=== PATIENT | male | born 1950 | race Hispanic/Latino ===

== ENCOUNTER 2016-08-28 16:54 | Inpatient (IN) | payer BC, MEDICARE ==
[2016-08-28 16:58] VITALS: BMI 27.9
[2016-08-28] MEDS ORDERED: Pantoprazole 40 MG in Sodium Chloride 0.9% 100 ML IV STA (17:18)
--- NOTE | 2016-08-28 17:34 | ED PDOC ---
Arrival/HPI <Jerry Frankel - Last Filed: 08/28/16 22:18> - General Historian: Patient <Malu Paredes - Last Filed: 08/29/16 00:58> - General Chief Complaint: Abdominal Pain Time Seen by Provider: 08/28/16 17:09 - History of Present Illness Narrative History of Present Illness (Text): 08/28/16 17:30 66yo male with PMHx Cirrhosis, claudication, umbilical hernia, head injury, seizure present with complaint of umbilical abdominal pain that stated yesterday and became worse today. states pain started last night after lifting heavy boxes and then he noticed protrusion of his hernia. +Nausea. He denies vomiting, diarrhea, constipation, melena, hematemesis, urinary symptoms, chest pain, dizziness, diaphoresis, sick contact, any other complaint. He notes surgical history of inguinal repair and espohageal surgery that was done in [place] last year. he also notes that the head injury occured while in [place] and he was seen by a Doctor there. 08/28/16 17:34 08/29/16 00:49 (Malu Paredes) Past Medical History - Provider Review Nursing Documentation Reviewed: Yes - Cardiac Hx Atrial Fibrillation: Yes Hx Cardiac Arrhythmia: Yes - Pulmonary Hx Respiratory Disorders: No - Neurological Hx Neurological Disorder: No - HEENT Hx HEENT Disorder: No - Renal Hx Renal Disorder: No - Endocrine/Metabolic Hx Endocrine Disorders: No - Hematological/Oncological Hx Cirrhosis: Yes Hx Hepatitis C: Yes - Integumentary Hx Dermatological Disorder: No - Musculoskeletal/Rheumatological Hx Falls: No - Gastrointestinal Other/Comment: cirrhosis - Genitourinary/Gynecological Hx Genitourinary Disorders: No - Psychiatric Hx Psychophysiologic Disorder: No Hx Depression: No Hx Emotional Abuse: No Hx Physical Abuse: No Hx Substance Use: No - Surgical History Other/Comment: pt states he had a band put on his esophagus in [place]. Knee surgery - Anesthesia Hx Anesthesia: Yes Hx Anesthesia Reactions: No Hx Malignant Hyperthermia: No - Suicidal Assessment Feels Threatened In Home Enviroment: No <Malu Paredes - Last Filed: 08/29/16 00:58> Family/Social History - Physician Review Nursing Documentation Reviewed: Yes Family/Social History: Unknown Family HX Smoking Status: Former Smoker Hx Alcohol Use: Yes (quit one year ago, goes to ) Hx Substance Use: No <Malu Paredes A - Last Filed: 08/29/16 00:58> Allergies/Home Meds <Jerry Frankel - Last Filed: 08/28/16 22:18> <Malu Paredes A - Last Filed: 08/29/16 00:58> Allergies/Adverse Reactions: Allergies No Known Allergies Allergy (Verified 08/28/16 16:58) Home Medications: Home Meds Medication Instructions Recorded Confirmed Nadolol 40 mg PO DAILY 12/19/11 08/28/16 Omeprazole [PrilOSEC] 40 mg PO DAILY 12/19/11 08/28/16 Digoxin [Lanoxin] 0.25 mg PO DAILY 08/28/16 08/28/16 Spironolactone [Aldactone] 25 mg PO DAILY 08/28/16 08/28/16 Review of Systems - Physician Review All systems were reviewed & negative as marked: Yes - Review of Systems Constitutional: Normal Eyes: Normal ENT: Normal Respiratory: Normal Cardiovascular: Normal Gastrointestinal: Abdominal Pain, Nausea. absent: Stool Changes, Constipation, Diarrhea, Vomiting, Hematochezia, Hematemesis Genitourinary Male: Normal Musculoskeletal: Normal Skin: Normal Neurological: Normal Endocrine: Normal Hemo/Lymphatic: Normal Psychiatric: Normal <Malu Paredes A - Last Filed: 08/29/16 00:58> Physical Exam Vital Signs Reviewed: Yes Temperature: Afebrile Blood Pressure: Normal Pulse: Regular Respiratory Rate: Normal Appearance: Positive for: Well-Appearing, Non-Toxic, Comfortable Pain Distress: None Mental Status: Positive for: Alert and Oriented X 3 - Systems Exam Head: Present: Atraumatic, Normocephalic Pupils: Present: PERRL Extroacular Muscles: Present: EOMI Conjunctiva: Present: Normal Mouth: Present: Moist Mucous Membranes Neck: Present: Normal Range of Motion Respiratory/Chest: Present: Clear to Auscultation, Good Air Exchange. No: Respiratory Distress, Accessory Muscle Use Cardiovascular: Present: Regular Rate and Rhythm, Normal S1, S2. No: Murmurs Abdomen: Present: Tenderness (Umbilical area), Normal Bowel Sounds, Guarding, Hernias (Nonreducible tender umbilical hernia). No: Distention, Peritoneal Signs, Rebound, McBurney's Point Tender, Rovsing's Sign Present Back: Present: Normal Inspection Upper Extremity: Present: Normal Inspection. No: Cyanosis, Edema Lower Extremity: Present: Normal Inspection. No: Edema Neurological: Present: GCS=15, CN II-XII Intact, Speech Normal Skin: Present: Warm, Dry, Normal Color. No: Rashes Psychiatric: Present: Alert, Oriented x 3, Normal Insight, Normal Concentration <Malu Paredes A - Last Filed: 08/29/16 00:58> Vital Signs Temp Pulse Resp BP Pulse Ox 08/28/16 23:42 77 17 147/86 99 08/28/16 23:12 96 H 16 165/93 H 98 08/28/16 22:54 97.9 F 69 16 134/71 08/28/16 22:39 97.8 F 65 16 141/90 08/28/16 22:19 70 16 141/90 100 08/28/16 21:30 97.4 F L 69 16 133/77 98 08/28/16 19:14 72 14 119/52 L 100 08/28/16 17:43 98.1 F 66 14 132/61 99 08/28/16 17:04 98.2 F 95 H 14 133/68 100 Medical Decision Making <Jerry Frankel - Last Filed: 08/28/16 22:18> <Malu Paredes A - Last Filed: 08/29/16 00:58> ED Course and Treatment: 08/28/16 22:18 Patient seen and examined with PA. I examined patient and reviewed hx with patient and . Patient presents with abdominal pain, on exam he is noted to have incarcerated umbilical hernia that is not reducible. Patient reportedly had seizure while in ED and being examined, when I evaluated him he is awake, alert, with no focal motor or sensory deficits. Abdomen is distended with umbilical hernia that cannot be reduced. Surgery consulted, Dr. Edwards requested, based on exam. CT with contrast ordered. Patient reports a fall and head injury in [place] last year where he had "bleeding in the brain" and had "seizure since then". He reports he is "an alcoholic" and drinks "frequently". Last drink this afternoon. On exam he is not tremulous or tachycardic. Rectal exam performed by me reveals BROWN but hemoccult positive stool. With serial exams he is not hypotensive or tachycardic. EKG reveals atrial fibrillation with controlled ventricular rate. Patient states Dr. Gavin, his GI did not want him to take blood thinners because "of my liver disease". He reports needing blood transfusion "6 years ago". Based on anemia and hemoccult positive stool, ICU evaluation requested, patient evaluated by Dr. Archibald, currently approved for telemetry admission. Surgery consulted, Dr. Edwrads aware, case discussed with Dr. Yeni Khan accepts admission. Patient had been prescribed Librium by PMD in past, currently not tremulous, although he requires serial neuro exams. CT head and abdomen pending at this time. Consent obtained for blood transfusion, risks/benefits and indications for transfusion reviewed with patient and , consent obtained. Patient denies vomiting or hematemesis. Denies chest pain or shortness of breath. Case reviewed with Dr. Gavin, protonix drip initiated, blood transfusion ordered. (Jerry Frankel) 08/28/16 17:52 66yo male in ED for umbilical hernia pain. while in ED pt was noted to have tonic clonic seizure that lasted for about a minute and then stopped. On evaluation he was neurological intact. AAO x3 and not postictal. He was noted to be retching. He admits to previous seizure episode s/p his head injury. He is currently not on any seizure medication. Zofran, Protonix was ordered. Lab pending Abdominal and Head CT ordered. will re evaluate pt. 08/28/16 19:43 Pt' h/H was noted to be 7.1. this is very low compare to pt's previous lab. Pt denies melena, hematemesis, hematochezia. Guaic will be done to r/o GI bleed. Type and screen will be ordered 08/29/16 00:50 Dr. Frankel guromeroc pt and it had melena. He obtained consent for transfusion from pt and pt was transfused two units. Pt however remain hemodynamically stable in ED. Head CT - Negative for any acute finding Abdominal CT IMPRESSION: 1. Local hernia containing bowel with resultant obstruction. 2. Cirrhosis with portal hypertension. 3. Mild colitis versus underdistention. Clinical correlation is needed. 4. Incidental/non-acute findings are described above. Dr. Frankel DC with Dr. Ochoa and Dr. Gavin. Dr. lieberman aceepted pt for admission. The Intensivit Dr. archibald saw pt and pt was admitted to [facility]. Dr. Frankel DC result and plan with the pt and he agreed. vice president lending placed NG tube in ED secondary to the obstruction. (Reggie,Malu A) - Lab Interpretations Lab Results: 08/28/16 15:35 08/28/16 15:35 Lab Results 08/28/16 20:05: Blood Type O POSITIVE, Antibody Screen Negative, Crossmatch See Detail, BBK History Checked No verified bt 08/28/16 15:35: Alcohol, Quantitative < 10 08/28/16 15:35: Digoxin 0.7 L 08/28/16 15:35: pO2 24 L, VBG pH 7.42, VBG pCO2 46.0, VBG HCO3 29.8 H, VBG Total CO2 31.2 H, VBG O2 Sat (Calc) 38.2 L, VBG Base Excess 4.8 H, VBG Potassium 4.2, Sodium 140.0, Chloride 108.0 H, Glucose 107, Lactate 2.0, FiO2 21.0, Venous Blood Potassium 4.2 08/28/16 15:35: Sodium 139, Chloride 105, Potassium 4.1, Carbon Dioxide 26, Anion Gap 12, BUN 11, Creatinine 0.8, Est GFR ( Amer) > 60, Est GFR (Non- Af Amer) > 60, Random Glucose 101, Calcium 9.0, Total Bilirubin 1.9 H, AST 78 H , ALT 49, Alkaline Phosphatase 92, Lactate Dehydrogenase 585, Total Creatine Kinase 127, Troponin I < 0.01, Total Protein 8.6 H, Albumin 3.5, Globulin 5.1, Albumin/Globulin Ratio 0.7 L, Amylase 119, Lipase 55 08/28/16 15:35: PT 13.6 H, INR 1.26 H, APTT 27.1 08/28/16 15:35: WBC 4.2 L, RBC 4.01, Hgb 7.1 L D, Hct 26.1 L, MCV 65.1 L, MCH 17.7 L, MCHC 27.2 L, RDW 21.9 H, Plt Count 145, Gran % 69.1 H, Lymph % (Auto) 12.5 L, [place] % (Auto) 10.8 H, Eos % (Auto) 5.0, Baso % (Auto) 2.6, Gran # 2.87, Lymph # 0.5 L, Leon # 0.5, Eos # 0.2, Baso # 0.11 - RAD Interpretation Radiology Orders: 08/28/16 17:18 ABD PELVIS PO & IV CONTRAST [CT] Stat 08/28/16 17:34 HEAD W/O CONTRAST [CT] Stat - Medication Orders Current Medication Orders: Hydromorphone HCl (Dilaudid) 0.5 mg IVP Q4H PRN PRN Reason: Pain, moderate (4-7) Pantoprazole Sodium (Protonix 40mg Ivpb) 40 mg in 100 mls @ 20 mls/hr IVPB .Q5H ALYSE Last Admin: 08/28/16 21:07 Dose: 20 mls/hr Piperacillin Sod/Tazobactam Sod (Zosyn 4.5 Gm In Ns 100ml) 4.5 gm in 100 mls @ 200 mls/hr IVPB Q6 ALYSE PRN Reason: Protocol Stop: 08/29/16 12:29 Sodium Chloride (Sodium Chloride 0.9%) 1,000 mls @ 125 mls/hr IV .Q8H ALYSE Morphine Sulfate (Morphine) 4 mg IVP STAT STA Stop: 08/29/16 00:24 Ondansetron HCl (Zofran Inj) 4 mg IVP Q6H PRN PRN Reason: Nausea/Vomiting Discontinued Medications Pantoprazole Sodium 40 mg/ (Sodium Chloride) 100 mls @ 400 mls/hr IV STAT STA Stop: 08/28/16 17:32 Last Admin: 08/28/16 18:19 Dose: 400 mls/hr Iohexol (Omnipaque 240 (50 Ml)) Confirm Administered Dose 50 ml .ROUTE .STK-MED ONE Stop: 08/28/16 17:38 Lorazepam (Ativan) 2 mg IVP ONCE ONE PRN Reason: Protocol Stop: 08/28/16 17:27 Last Admin: 08/28/16 17:32 Dose: 2 mg Morphine Sulfate (Morphine) 4 mg IVP STAT STA Stop: 08/28/16 18:37 Last Admin: 08/28/16 18:49 Dose: 4 mg Morphine Sulfate (Morphine) 2 mg IVP STAT STA Stop: 08/28/16 19:52 Last Admin: 08/28/16 20:00 Dose: 2 mg Ondansetron HCl (Zofran Inj) 4 mg IVP STAT STA Stop: 08/28/16 17:19 Last Admin: 08/28/16 17:44 Dose: 4 mg Ondansetron HCl (Zofran Inj) 4 mg IVP STAT STA Stop: 08/28/16 23:21 Last Admin: 08/28/16 23:52 Dose: 4 mg - PA / MISSION ANALYST / Resident Statement / has reviewed & agrees with the documentation as recorded. / has examined the patient and agrees with the treatment plan. <Jerry Frankel - Last Filed: 08/28/16 22:18> Disposition/Present on Arrival <Jerry Frankel - Last Filed: 08/28/16 22:18> - Present on Arrival Any Indicators Present on Arrival: No History of DVT/PE: No History of Uncontrolled Diabetes: No Urinary Catheter: No History of Decub. Ulcer: No History Surgical Site Infection Following: None - Disposition Have Diagnosis and Disposition been Completed?: Yes Disposition Time: 20:00 <Malu Paredes - Last Filed: 08/29/16 00:58> - Disposition Diagnosis: Seizure, GI bleed, Hernia, Intestinal obstruction Disposition: HOSPITALIZED Patient Problems: Current Active Problems Problem Status Onset Seizure Acute Condition: GUARDED
[2016-08-28] MEDS ORDERED: Iohexol 240 (50 ml) ONE (17:37)
[2016-08-28 17:49] LABS: VENOUS BLOOD GAS BASE EXCESS 4.8 mmol/L (0.0-2.0); VENOUS BLOOD GAS PO2 24 mm/Hg (30-55); VENOUS BLOOD PH 7.42 (7.32-7.43)
[2016-08-28 17:57] LABS: ALB/GLOB RATIO 0.7 (1.1-1.8); ALBUMIN 3.5 g/dL (3.0-4.8); ALT/SGPT 49 U/L (7-56); AMYLASE 119 U/L (35-125); AST/SGOT 78 U/L (15-59); BLOOD UREA NITROGEN 11 mg/dL (7-21); GFR AFRICAN-AMERICAN > 60; GFR NON-AFRICAN AMERICAN > 60; LIPASE 55 U/L (23-300)
[2016-08-28 18:00] LABS: INR 1.26 (0.93-1.08); PARTIAL THROMBOPLASTIN TIME 27.1 Seconds (23.7-30.8); PROTHROMBIN TIME 13.6 Seconds (9.9-11.8)
[2016-08-28 18:08] LABS: TROPONIN I < 0.01 ng/mL
[2016-08-28] MEDS ORDERED: Morphine 4 mg/ml ISec IVP STA (18:36)
[2016-08-28 18:43] LABS: BASO # 0.11 K/mm3 (0.0-2.0); BASO % 2.6 % (0.0-3.0); EOS # 0.2 (0.0-0.7); GRAN # 2.87 (1.4-6.5); GRAN % 69.1 % (50.0-68.0); LYMPH # 0.5 (1.2-3.4); LYMPH % 12.5 % (22.0-35.0); MEAN CELL VOLUME 65.1 fL (80.0-105.0); MEAN CORPUSCULAR HEMOGLOBIN 17.7 pg (25.0-35.0); MEAN CORPUSCULAR HGB CONC 27.2 g/dl (31.0-37.0); MONO # 0.5 (0.1-0.6); MONO % 10.8 % (1.0-6.0); PLATELET COUNT 145 10^3/uL (120.0-450.0); RBC 4.01 10^6/uL (3.5-6.1); RED CELL DISTRIBUTION WIDTH 21.9 % (11.5-14.5); WHITE BLOOD COUNT 4.2 10^3/ul (4.5-11.0)
[2016-08-28 18:56] LABS: HEMOGLOBIN 7.1 gm/dL (14.0-18.0)
[2016-08-28] MEDS ORDERED: Morphine 2 mg/ml ISec IVP STA (19:51)
--- NOTE | 2016-08-28 21:05 | CP.PCM.CON ---
History of Present Illness - History of Present Illness History of Present Illness: General Surgery Consult note for Dr. Edwards Consulted for: incarcerated hernia Patient is a 66 year old male with PMH including hepatitis C and cirrhosis with ascites, afib, and seizures with PSH of inguinal hernia repair and what the patient describes as "esophageal band" procedure in [place] one year ago for intractable nausea and vomiting. Patient came to the ER for abdominal pain and non-reducible umbilical hernia. Patient states that he first noticed his umbilical hernia 6 months ago shortly after onset of abdominal ascites but today he was walking up the stairs carrying a heavy suitcase when he started feeling more pain in his umbilicus and found he couldn't reduce his hernia. The pain got gradually worse until he came to the ER. When the ER staff palpated his hernia patient had an episode of vomiting followed by a seizure. Patient denies any nausea, diarrhea, constipation, fevers, chills, hematochezia, melena , dysuria, hematuria, chest pain, back pain, or any other symptoms. During my interview patient is sitting comfortably, stating his pain is much improved by the morphine, and denies any further nausea and vomiting. PMH: Hepatitis C, cirrhosis with ascites, afib, seizures, head trauma PSH: inguinal hernia repair, knee surgery, ?esophageal surgery ALL: NKDA Social: drinks 2-3 beers a day, used to drink more heavily. Past smoker 1.5PPD for 25 years, quit 10 years ago. Admits recreational drug use decades ago Review of Systems - Review of Systems All systems: reviewed and no additional remarkable complaints except (as per HPI ) - Constitutional Constitutional: As Per HPI - Cardiovascular Cardiovascular: absent: Chest Pain, Chest Pain at Rest, Dyspnea - Respiratory Respiratory: absent: Cough, Dyspnea, Wheezing - Gastrointestinal Gastrointestinal: As Per HPI - Genitourinary Genitourinary: As Per HPI - Musculoskeletal Musculoskeletal: Arthralgias (chronic left shoulder pain). absent: Back Pain, Numbness, Tingling - Integumentary Integumentary: absent: Change in Pigmentation, Wounds - Neurological Neurological: absent: Abnormal Gait, Numbness, Tingling Past Patient History - Past Medical History & Family History Past Medical History?: Yes - Past Social History Smoking Status: Former Smoker Alcohol: > 2 Drinks/Day Drugs: Other (Used when younger) Home Situation {Lives}: With Family - CARDIAC Hx Atrial Fibrillation: Yes Hx Cardia Arrhythmia: Yes - PULMONARY Hx Respiratory Disorders: No - NEUROLOGICAL Hx Neurological Disorder: No - HEENT Hx HEENT Problems: No - RENAL Hx Chronic Kidney Disease: No - ENDOCRINE/METABOLIC Hx Endocrine Disorders: No - HEMATOLOGICAL/ONCOLOGICAL Hx Cirrhosis: Yes Hx Hepatitis C: Yes - INTEGUMENTARY Hx Dermatological Problems: No - MUSCULOSKELETAL/RHEUMATOLOGICAL Hx Falls: No - GASTROINTESTINAL Other/Comment: cirrhosis - GENITOURINARY/GYNECOLOGICAL Hx Genitourinary Disorders: No - PSYCHIATRIC Hx Psychophysiologic Disorder: No Hx Depression: No Hx Emotional Abuse: No Hx Physical Abuse: No Hx Substance Use: No - SURGICAL HISTORY Hx Herniorrhaphy: Yes (inguinal) Hx Orthopedic Surgery: Yes (knee) Other/Comment: pt states he had a band put on his esophagus in [place] - ANESTHESIA Hx Anesthesia: Yes Hx Anesthesia Reactions: No Hx Malignant Hyperthermia: No Meds Allergies/Adverse Reactions: Allergies Allergy/AdvReac Type Severity Reaction Status Date / Time No Known Allergies Allergy Verified 08/28/16 16:58 - Medications Medications: Current Medications Pantoprazole Sodium (Protonix 40mg Ivpb) 40 mg in 100 mls @ 20 mls/hr IVPB .Q5H ALYSE Physical Exam - Constitutional Appears: Well, Non-toxic, No Acute Distress - Head Exam Head Exam: ATRAUMATIC, NORMOCEPHALIC - Eye Exam Eye Exam: Normal appearance. absent: Conjunctival injection, Scleral icterus - ENT Exam ENT Exam: Mucous Membranes Moist, Normal Oropharynx - Respiratory Exam Respiratory Exam: NORMAL BREATHING PATTERN. absent: Accessory Muscle Use, Respiratory Distress - Cardiovascular Exam Cardiovascular Exam: RRR - GI/Abdominal Exam GI & Abdominal Exam: Distended, Soft, Tenderness (megha-umbilical, LLQ). absent : Guarding, Rigid Additional comments: umbilical hernia, tense, non-reducible, non-erythematous, mildly tender - Extremities Exam Extremities exam: Positive for: pedal pulses present. Negative for: calf tenderness, pedal edema - Neurological Exam Neurological exam: Alert, Oriented x3 - Psychiatric Exam Psychiatric exam: Normal Affect, Normal Mood - Skin Skin Exam: Dry, Intact, Normal Color, Warm Results - Vital Signs Recent Vital Signs: Last Vital Signs Temp 98.1 F 08/28/16 17:43 Pulse 72 08/28/16 19:14 Resp 14 08/28/16 19:14 BP 119/52 L 08/28/16 19:14 Pulse Ox 100 08/28/16 19:14 - Labs Result Diagrams: 08/28/16 15:35 08/28/16 15:35 Labs: Laboratory Results - last 24 hr 08/28/16 08/28/16 08/28/16 15:35 15:35 15:35 WBC 4.2 L RBC 4.01 Hgb 7.1 L D Hct 26.1 L MCV 65.1 L MCH 17.7 L MCHC 27.2 L RDW 21.9 H Plt Count 145 Gran % 69.1 H Lymph % (Auto) 12.5 L [place] % (Auto) 10.8 H Eos % (Auto) 5.0 Baso % (Auto) 2.6 Gran # 2.87 Lymph # 0.5 L [place] # 0.5 Eos # 0.2 Baso # 0.11 PT 13.6 H INR 1.26 H APTT 27.1 pO2 VBG pH VBG pCO2 VBG HCO3 VBG Total CO2 VBG O2 Sat (Calc) VBG Base Excess VBG Potassium Sodium 139 Chloride 105 Glucose Lactate FiO2 Potassium 4.1 Carbon Dioxide 26 Anion Gap 12 BUN 11 Creatinine 0.8 Est GFR ( Amer) > 60 Est GFR (Non-Af Amer) > 60 Random Glucose 101 Calcium 9.0 Total Bilirubin 1.9 H AST 78 H ALT 49 Alkaline Phosphatase 92 Lactate Dehydrogenase 585 Total Creatine Kinase 127 Troponin I < 0.01 Total Protein 8.6 H Albumin 3.5 Globulin 5.1 Albumin/Globulin Ratio 0.7 L Amylase 119 Lipase 55 Venous Blood Potassium Digoxin Alcohol, Quantitative Crossmatch BBK History Checked 08/28/16 08/28/16 08/28/16 15:35 15:35 15:35 WBC RBC Hgb Hct MCV MCH MCHC RDW Plt Count Gran % Lymph % (Auto) [place] % (Auto) Eos % (Auto) Baso % (Auto) Gran # Lymph # [place] # Eos # Baso # PT INR APTT pO2 24 L VBG pH 7.42 VBG pCO2 46.0 VBG HCO3 29.8 H VBG Total CO2 31.2 H VBG O2 Sat (Calc) 38.2 L VBG Base Excess 4.8 H VBG Potassium 4.2 Sodium 140.0 Chloride 108.0 H Glucose 107 Lactate 2.0 FiO2 21.0 Potassium Carbon Dioxide Anion Gap BUN Creatinine Est GFR ( Amer) Est GFR (Non-Af Amer) Random Glucose Calcium Total Bilirubin AST ALT Alkaline Phosphatase Lactate Dehydrogenase Total Creatine Kinase Troponin I Total Protein Albumin Globulin Albumin/Globulin Ratio Amylase Lipase Venous Blood Potassium 4.2 Digoxin 0.7 L Alcohol, Quantitative < 10 Crossmatch BBK History Checked 08/28/16 20:05 WBC RBC Hgb Hct MCV MCH MCHC RDW Plt Count Gran % Lymph % (Auto) [place] % (Auto) Eos % (Auto) Baso % (Auto) Gran # Lymph # [place] # Eos # Baso # PT INR APTT pO2 VBG pH VBG pCO2 VBG HCO3 VBG Total CO2 VBG O2 Sat (Calc) VBG Base Excess VBG Potassium Sodium Chloride Glucose Lactate FiO2 Potassium Carbon Dioxide Anion Gap BUN Creatinine Est GFR ( Amer) Est GFR (Non-Af Amer) Random Glucose Calcium Total Bilirubin AST ALT Alkaline Phosphatase Lactate Dehydrogenase Total Creatine Kinase Troponin I Total Protein Albumin Globulin Albumin/Globulin Ratio Amylase Lipase Venous Blood Potassium Digoxin Alcohol, Quantitative Crossmatch See Detail BBK History Checked No verified bt Assessment & Plan - Assessment and Plan (Free Text) Assessment: 66M with PMH including cirrhosis with ascites, hepatitis C, seizures with PSH of inguinal hernia repair and unknown esophageal surgery with an incarcerated umbilical hernia for 1 day. afebrile, VSS incarcerated, tender umbilical hernia, abdominal exam otherwise benign no leukocytosis, severe anemia of 7.1hgb, lactate 2.0 Plan: -abdomen and pelvis CT scan with PO contrast--planning surgical intervention pending results -repeat H/H -antibiotics -IVF -serial abdominal exams -consider administering blood products if repeat H/H still low Discussed with Dr. Jerry Grossman PGY1
[2016-08-28] MEDS: Pantoprazole 40mg/100ml IVPB 40 MG/100 ML BAG IVPB SCH (21:07)
--- NOTE | 2016-08-28 22:43 | CT ---
EXAM: CT Head Without Intravenous Contrast CLINICAL HISTORY: 66 years old, male; Pain; Headache; Headache not specified; Additional info: Seizure TECHNIQUE: Axial computed tomography images of the head/brain without intravenous contrast. This CT exam was performed using one or more of the following dose reduction techniques: automated exposure control, adjustment of the mA and/or kV according to patient size, and/or use of iterative reconstruction technique. COMPARISON: No relevant prior studies available. FINDINGS: Brain: Sred-wj-mmaudyxn atrophy. No intracranial hemorrhage. No mass. No definite edema. Ventricles: No hydrocephalus. Bones/joints: No acute fracture. Soft tissues: Unremarkable. Sinuses: Moderate mucosal thickening of RIGHT sphenoid sinus. Mild focal thickening of RIGHT ethmoid sinus. Mastoid air cells: No mastoid effusion. Orbits: Unremarkable as visualized. IMPRESSION: 1. No definite acute intracranial abnormality. 2. Sinus disease. 3. Incidental/non-acute findings are described above.
--- NOTE | 2016-08-28 22:50 | CT ---
EXAM: CT Abdomen and Pelvis With Intravenous Contrast CLINICAL HISTORY: 66 years old, male; Pain; Abdominal pain; Acute TECHNIQUE: Axial computed tomography images of the abdomen and pelvis with intravenous contrast. This CT exam was performed using one or more of the following dose reduction techniques: automated exposure control, adjustment of the mA and/or kV according to patient size, and/or use of iterative reconstruction technique. Coronal and sagittal reformatted images were created and reviewed. CONTRAST: 100 mL of omni 350 administered intravenously. COMPARISON: No relevant prior studies available. FINDINGS: Lower thorax: Mild cardiomegaly. Mild atelectasis/scarring. ABDOMEN: Liver: Lobulated contour. Gallbladder and bile ducts: Gallstone. No ductal dilation. Pancreas: No ductal dilation. No mass. Spleen: Mild splenomegaly. Adrenals: No mass. Kidneys and ureters: Probable few renal cysts. No hydronephrosis. Stomach and bowel: Small umbilical hernia containing loop of small bowel. Moderately dilated loops of small bowel proximal to hernia. Collapsed small bowel distal to hernia. Segmental areas of mild mural thickening vs underdistention of large bowel. Appendix: No findings to suggest acute appendicitis. PELVIS: Bladder: Unremarkable. Reproductive: Unremarkable as visualized. ABDOMEN and PELVIS: Intraperitoneal space: Moderate to large free fluid within abdomen and pelvis. Bones/joints: Scoliosis and degenerative changes of spine. No acute fracture. Soft tissues: Minimal gynecomastia. Vasculature: Mild atherosclerotic disease. No aneurysm. Few varices within upper abdomen. Lymph nodes: No pathologically enlarged lymph nodes. IMPRESSION: 1. Local hernia containing bowel with resultant obstruction. 2. Cirrhosis with portal hypertension. 3. Mild colitis versus underdistention. Clinical correlation is needed. 4. Incidental/non-acute findings are described above.
--- NOTE | 2016-08-28 23:39 | CP.PCM.CON ---
Past Patient History - Past Medical History & Family History Past Medical History?: Yes - Past Social History Smoking Status: Former Smoker Alcohol: > 2 Drinks/Day Drugs: Other (Used when younger) Home Situation {Lives}: With Family - CARDIAC Hx Atrial Fibrillation: Yes Hx Cardia Arrhythmia: Yes - PULMONARY Hx Respiratory Disorders: No - NEUROLOGICAL Hx Neurological Disorder: No - HEENT Hx HEENT Problems: No - RENAL Hx Chronic Kidney Disease: No - ENDOCRINE/METABOLIC Hx Endocrine Disorders: No - HEMATOLOGICAL/ONCOLOGICAL Hx Cirrhosis: Yes Hx Hepatitis C: Yes - INTEGUMENTARY Hx Dermatological Problems: No - MUSCULOSKELETAL/RHEUMATOLOGICAL Hx Falls: No - GASTROINTESTINAL Other/Comment: cirrhosis - GENITOURINARY/GYNECOLOGICAL Hx Genitourinary Disorders: No - PSYCHIATRIC Hx Psychophysiologic Disorder: No Hx Depression: No Hx Emotional Abuse: No Hx Physical Abuse: No Hx Substance Use: No - SURGICAL HISTORY Hx Herniorrhaphy: Yes (inguinal) Hx Orthopedic Surgery: Yes (knee) Other/Comment: pt states he had a band put on his esophagus in [place] - ANESTHESIA Hx Anesthesia: Yes Hx Anesthesia Reactions: No Hx Malignant Hyperthermia: No Meds Allergies/Adverse Reactions: Allergies Allergy/AdvReac Type Severity Reaction Status Date / Time No Known Allergies Allergy Verified 08/28/16 16:58 - Medications Medications: Current Medications Pantoprazole Sodium (Protonix 40mg Ivpb) 40 mg in 100 mls @ 20 mls/hr IVPB .Q5H ALYSE Last Admin: 08/28/16 21:07 Dose: 20 mls/hr Results - Vital Signs Recent Vital Signs: Last Vital Signs Temp 97.9 F 08/28/16 22:54 Pulse 69 08/28/16 22:54 Resp 16 08/28/16 22:54 BP 134/71 08/28/16 22:54 Pulse Ox 98 08/28/16 21:30 - Labs Result Diagrams: 08/28/16 15:35 08/28/16 15:35 Labs: Laboratory Results - last 24 hr 08/28/16 20:32 Blood Type Confirm O POSITIVE
[2016-08-29] MEDS ORDERED: Morphine 4 mg/ml ISec IVP STA (00:23)
[2016-08-29] MEDS ORDERED: Sodium Chloride 0.9% 1,000 ML IV SCH (00:30)
[2016-08-29 02:40] LABS: PH,URINE 6.5 (4.7-8.0); URINE BILIRUBIN SMALL (NEGATIVE); URINE BLOOD NEGATIVE (NEGATIVE); URINE GLUCOSE (UA) NEGATIVE (NEGATIVE); URINE LEUKOCYTE ESTERASE NEGATIVE Leu/uL (NEGATIVE); URINE NITRATE NEGATIVE (NEGATIVE); URINE PROTEIN TRACE mg/dL (<30 mg/dL)
[2016-08-29 02:45] LABS: URINE APPEARANCE CLEAR (CLEAR); URINE COLOR YELLOW (YELLOW)
[2016-08-29] MEDS: Pantoprazole 40mg/100ml IVPB 40 MG/100 ML BAG IVPB SCH ×2 (02:46→05:54)
[2016-08-29 02:56] LABS: URINE BACTERIA OCC (NEG); URINE EPITHELIAL CELLS 0 - 2 /hpf (0-5); URINE RBC 0 - 2 /hpf (0-2)
[2016-08-29] MEDS: HYDROmorphone 0.5 mg/0.5 ml ISec IVP PRN ×2 (04:10→21:26)
--- NOTE | 2016-08-29 04:24 | CP.PCM.PN ---
Subjective - Date & Time of Evaluation Date of Evaluation: 08/29/16 Time of Evaluation: 04:21 - Subjective Subjective: S: As per nurse patient had 2.7 second pause on monitor. He was seen at bedside. He is asymptomatic. Denies chest pain, sob, nasuea, sweating. Medical record was reviewed. O: Last Vital Signs 3 Temp 98.1 F 08/29/16 04:23 Pulse 80 08/29/16 04:23 Resp 20 08/29/16 04:23 BP 144/83 08/29/16 04:23 Pulse Ox 99 08/28/16 23:42 Awake, alert. NGT in place. LUNGS: Normal breathing pattern. A:Sinus pause on monitor. P:Add Mg, Phos, Trop in AM labs. Objective - Vital Signs/Intake and Output Vital Signs (last 24 hours): Temp Pulse Resp BP Pulse Ox 97.5 F L 82 20 148/81 99 08/29/16 03:53 08/29/16 03:53 08/29/16 03:53 08/29/16 03:53 08/28/16 23:42 Intake and Output: 08/28/16 08/29/16 18:59 06:59 Intake Total 350 Balance 350 - Medications Medications: Current Medications Hydromorphone HCl (Dilaudid) 0.5 mg IVP Q4H PRN PRN Reason: Pain, moderate (4-7) Last Admin: 08/29/16 04:10 Dose: 0.5 mg Pantoprazole Sodium (Protonix 40mg Ivpb) 40 mg in 100 mls @ 20 mls/hr IVPB .Q5H ALYSE Last Admin: 08/29/16 02:46 Dose: 20 mls/hr Piperacillin Sod/Tazobactam Sod (Zosyn 4.5 Gm In Ns 100ml) 4.5 gm in 100 mls @ 200 mls/hr IVPB Q6 ALYSE PRN Reason: Protocol Stop: 08/29/16 12:29 Sodium Chloride (Sodium Chloride 0.9%) 1,000 mls @ 125 mls/hr IV .Q8H ALYSE Ondansetron HCl (Zofran Inj) 4 mg IVP Q6H PRN PRN Reason: Nausea/Vomiting Last Admin: 08/29/16 04:09 Dose: 4 mg - Labs Labs: PT 13.6 Seconds (9.9-11.8) H 08/28/16 15:35 INR 1.26 (0.93-1.08) H 08/28/16 15:35 APTT 27.1 Seconds (23.7-30.8) 08/28/16 15:35
[2016-08-29] MEDS: Piperacill/Tazo 4.5gm in NS 4.5 GM/100 ML BAG IVPB SCH ×2 (05:54→14:25)
[2016-08-29 06:19] LABS: HEMOGLOBIN 9.6 gm/dL (14.0-18.0); MEAN CELL VOLUME 68.8 fL (80.0-105.0); MEAN CORPUSCULAR HEMOGLOBIN 19.4 pg (25.0-35.0); MEAN CORPUSCULAR HGB CONC 28.2 g/dl (31.0-37.0); PLATELET COUNT 162 10^3/uL (120.0-450.0); RBC 4.96 10^6/uL (3.5-6.1); RED CELL DISTRIBUTION WIDTH 23.6 % (11.5-14.5); WHITE BLOOD COUNT 7.6 10^3/ul (4.5-11.0)
[2016-08-29 06:34] LABS: ALB/GLOB RATIO 0.7 (1.1-1.8); ALBUMIN 3.5 g/dL (3.0-4.8); ALT/SGPT 53 U/L (7-56); AST/SGOT 69 U/L (15-59); BLOOD UREA NITROGEN 13 mg/dL (7-21); CALCIUM 8.9 mg/dL (8.4-10.5); GFR AFRICAN-AMERICAN > 60; GFR NON-AFRICAN AMERICAN > 60; MAGNESIUM 1.6 mg/dL (1.7-2.2)
[2016-08-29 06:47] LABS: BAND 6 % (0-2); BASOPHIL 1 % (0.0-1.0); EOSINOPHIL 1 % (0.0-3.0); HYPOCHROMIA 2+; LYMPHOCYTE 4 % (22.0-35.0); MONOCYTE 2 % (1.0-6.0); NEUTROPHIL 86 % (50.0-70.0); PLATELET ESTIMATE NORMAL (NORMAL); TARGET CELLS 1+
[2016-08-29 06:54] LABS: TROPONIN I < 0.01 ng/mL
[2016-08-29] MEDS ORDERED: Magnesium Sulfate 1 gm in D5W 1 GM/100 ML BAG IVPB ONE (06:59)
--- NOTE | 2016-08-29 08:52 | RAD ---
HISTORY: NGT placement COMPARISON: No prior. FINDINGS: LUNGS: No active pulmonary disease. PLEURA: No significant pleural effusion identified, no pneumothorax apparent. CARDIOVASCULAR: Normal. OSSEOUS STRUCTURES: No significant abnormalities. VISUALIZED UPPER ABDOMEN: Normal. OTHER FINDINGS: None. IMPRESSION: The nasogastric tube is in satisfactory position
[2016-08-29 09:27] LABS: INR 1.28 (0.93-1.08); PARTIAL THROMBOPLASTIN TIME 27.3 Seconds (23.7-30.8); PROTHROMBIN TIME 13.8 Seconds (9.9-11.8)
--- NOTE | 2016-08-29 10:24 | CON ---
DATE: 08/29/2016 INDICATIONS: Atrial fibrillation with 7 second pause. HISTORY OF PRESENT ILLNESS: This is a 66-year-old man admitted yesterday with complex medical problems. He is in atrial fibrillation. While on telemetry a 2.9 and a 7.5 second RR intervals were noted. He reports some dizziness, although he is a vague historian. There is no chest pain, shortness of breath, orthopnea, PND, palpitation, edema, fever, chills, cough, sputum production, hemoptysis. He does report a fall with head injury in [place] last year. He does report some episodes of dizziness. There is abdominal pain and an incarcerated umbilical hernia. PAST MEDICAL HISTORY: Notable for cirrhosis, intermittent claudication, fall with head injury while in [place] last year, head trauma, seizure disorder, anemia, hepatitis C, history of esophageal surgery, daily alcohol use, former smoker, but no history of rheumatic fever, myocardial infarction, angina, congestive heart failure, stroke, TIA, diabetes, or gout. MEDICATIONS AT THIS TIME: Include Ativan, Dilaudid, magnesium sulfate, morphine , pantoprazole, Zofran, Zosyn. ALLERGIES: There are no known medication allergies. SOCIAL HISTORY: He lives at home. He is a former smoker. He drinks frequently , but not recently. MEDICATIONS: Prior to admission included nadolol, omeprazole, digoxin, spironolactone. REVIEW OF SYSTEMS: A 10-point review of systems is otherwise unremarkable except as noted above. PHYSICAL EXAMINATION: GENERAL: He is a well-developed male lying in bed with an NG tube in no acute distress. VITAL SIGNS: Notable for atrial fibrillation, 79 beats per minute, afebrile, blood pressure 147/91, respirations 18-20, O2 sat 96%-100% on room air. HEENT: Reveals no neck vein distention, thyromegaly, or carotid bruits. Mucous membranes are moist. NECK: Supple. LUNGS: Bianchi clear. HEART: Revealed an irregular rhythm, normal first and second heart sounds. Soft systolic murmur along the left sternal border. ABDOMEN: Distended, umbilical hernia present. Mild tenderness. EXTREMITIES: Revealed no cyanosis, clubbing, or edema. NEUROLOGIC: She is awake and alert, slight slurring of speech. PSYCHIATRIC: Normal as to mood and affect. SKIN: Warm and dry. No rash or cellulitis. LABORATORY AND IMAGING: EKG demonstrates atrial fibrillation with poor R-wave progression, nonspecific ST-wave changes. CT scan of the head is noted, it demonstrates no definite acute intracranial abnormality. A chest x-ray reveals nasogastric tube in satisfactory position. White count normal, hemoglobin 9.6 following transfusion, hematocrit 34.1 following transfusion. Platelet count normal. PT 13.6, INR 1.26, PTT 27.1. Blood gas noted. Electrolytes, BUN, creatinine, blood sugar unremarkable. Magnesium low at 1.6. LFTs are abnormal with a bilirubin of 3.5, AST 69, ALT 53, alkaline phosphatase 90. Two troponins are negative. CK 127. Amylase and lipase normal. Urinalysis noted. Digoxin level 0.7. Alcohol less than 10. IMPRESSION: The patient is a 66-year-old man with gastrointestinal problems including cirrhosis, abdominal distention, incarcerated umbilical hernia, gastrointestinal bleeding, severe anemia requiring transfusion, chronic atrial fibrillation who was found to have long pauses on telemetry during the night. Apparently, he had been on digoxin and nadolol prior to admission, but these are not ordered at this time. At this time, he is undergoing active GI and surgical evaluations. Nadolol and digoxin have been held. I would continue him on telemetry. If long pauses continue, he should have an EP evaluation and possible permanent pacemaker. This may have to be addressed if urgent surgery is necessary. If surgery could be postponed for a few days while nadolol and digoxin wear off, this would be optimal. I would check thyroid studies, monitor I's and O's, H and H, labs. I will replace magnesium. I will review old any old records that may be available. I will follow along with you and make additional recommendations based on his clinical course. Jose Delvalle MD cc: [id number] TT: 08/29/2016 10:23:32 Confirmation # [id number] Dictation # [id number] stacie SHARIF
[2016-08-29] MEDS ORDERED: Propofol 10 mg/ml Inj (20 ML) ONE (10:39)
[2016-08-29] MEDS ORDERED: Succinylcholine 200 mg/10 ml Inj IV ONE (10:44)
[2016-08-29] MEDS ORDERED: Rocuronium 10 mg/ml (5 ml) ONE (10:44)
[2016-08-29] MEDS ORDERED: ePHEDrine 50 mg/ml Inj ONE (10:49)
[2016-08-29] MEDS ORDERED: Atropine 0.4 mg/ml Inj (1 mL) ONE (10:49)
[2016-08-29] MEDS ORDERED: Phenylephrine 10 mg/ml Inj ONE (10:51)
--- NOTE | 2016-08-29 10:53 | CON ---
DATE: 08/29/2016 REQUESTING PHYSICIAN: Dr. Khan. REASON FOR CONSULTATION: I have been asked to see this 66-year-old male with known cirrhosis of the liver secondary to alcoholism and hepatitis C, history of GI bleeding while visiting [place] several y ears ago, status post banding of esophageal varices who developed abdominal pain at his umbilicus aft er lifting heavy suitcase. HISTORY OF PRESENT ILLNESS: He is known to have an umbilical hernia. Routine workup in the Emergenc y Room showed the patient to be anemic with hemoglobin of 7 gram range. He was also noted to have an incarcerated umbilical hernia with small-bowel obstruction proximal to the incarcerated umbilical he rnia. The patient apparently had a generalized seizure in the Emergency Room; he is an alcoholic who drinks regularly. He also has a history of atrial fibrillation. It was decided with his cardiologi st not to start the patient on anticoagulation due to his alcoholism and risk of frequent falls. The patient has had multiple blood transfusions over the years secondary to anemia and GI bleeding. His last episode of GI bleeding was several years ago while in [place]. He is also known to have portal hypertensive gastropathy. The patient also apparently sustained an intracranial hematoma after a fal l from an alcoholic binge while he was in [place] several years ago. PAST MEDICAL HISTORY: As above. Again, he has a history of cirrhosis of the liver secondary to alco holism and hepatitis C. He has a history of atrial fibrillation, esophageal varices, portal hyperten sive gastropathy anemia. SOCIAL HISTORY: The patient is a long-term alcoholic. He denies cigarette smoking. He also has a h istory of hepatitis C from drug use in the past. FAMILY HISTORY: Noncontributory. REVIEW OF SYSTEMS: A 14-point review of systems is notable for pain at his umbilical hernia. He als o admits to some nausea and one episode of vomiting. He also had an episode of generalized seizures. He denies any rectal bleeding, melena, hematemesis. PHYSICAL EXAMINATION: GENERAL: Middle-aged male lying in bed in no acute distress. VITAL SIGNS: Reveal temperature of 97.5, blood pressure 147/91, heart rate 79. HEENT: Reveals sclerae to be white, conjunctivae pale. Has an NG tube in his nose draining bilious brown fluid, no blood. NECK: Supple. CHEST: Reveals lungs to be clear. HEART: Reveals an irregularly irregular rate. ABDOMEN: Soft. He does have a reducible midline ventral hernia above the umbilicus. He also has a nonreducible incarcerated umbilical hernia. There is tenderness at the hernia site. EXTREMITIES: Show no edema. LABORATORY DATA: Reveal hemoglobin 9.6 up from 7.1 after 2 units of packed red blood cells, white bl ood cell count 7.6, platelet count of 162,000. PT 13.8, INR 1.28. Chemistries reveal normal electro lytes, BUN 13, creatinine 0.8, total bilirubin 3.5, AST 69, albumin of 3.5. IMPRESSION: A 66-year-old male alcoholic, history of hepatitis C, history of cirrhosis of the liver, who developed pain at his umbilicus after lifting a heavy suit case, found to have an incarcerated u mbilical hernia with small-bowel obstruction. The patient has a history of esophageal varices, which were banded in the past. He has a history of portal hypertensive gastropathy and chronic anemia. T here is no evidence of gastrointestinal bleeding at this time. He did have a seizure in the Emergenc y Room, most likely secondary to alcohol withdrawal. His CT of the head was negative for any intracr anial bleed. He also has a history of atrial fibrillation, not on any anticoagulation due to his alc oholism and risk for recurrent falls. RECOMMENDATIONS: 1. Surgery for repair of umbilical hernia. 2. Would remove the NG tube as soon as possible given his history of esophageal varices. 3. Follow CBC and transfuse packed red blood cells as needed. 4. IV Protonix 20 mg twice a day. Landry Gavin MD cc: [id number] TT: 08/29/2016 10:52:34 Confirmation # [id number] Dictation # [id number] stacie
[2016-08-29] MEDS ORDERED: Bupivacaine 0.5% Inj(30mL) ONE (11:42)
[2016-08-29] MEDS ORDERED: HYDROmorphone 0.5 mg/0.5 ml ISec IVP PRN (12:29)
[2016-08-29] MEDS ORDERED: Lactated Ringer's 1,000 ML IV SCH (12:29)
--- NOTE | 2016-08-29 13:01 | PCM.SURG1 ---
Surgeon's Initial Post Op Note - Surgeon's Notes Surgeon: Dr. Edwards Alligator Trapper: Dr. Martinez Type of Anesthesia: General Endo, Local Pre-Operative Diagnosis: incarcerated umbilical hernia, possibly strangulated Operative Findings: umbilical hernia fascial defect w/ incarcerated vascularly congested, not ischemic, small bowel. 1.8 lts of clear yellow ascites Post-Operative Diagnosis: incarcerated umbilical hernia w/ small bowel contents Operation Performed: open incarcerated umbilical hernia primary repair, evacuation of ascitic fluid Specimen/Specimens Removed: hernia sac Estimated Blood Loss: EBL {In ML}: 15 Blood Products Given: N/A Drains Used: No Drains Post-Op Condition: Good Date of Surgery/Procedure: 08/29/16 Time of Surgery/Procedure: 11:00
--- NOTE | 2016-08-29 14:06 | CARD ---
APPROVED REPORT EKG Measurement Heart [id number] <Conclusion> Poor data quality, interpretation may be adversely affected Atrial fibrillation Nonspecific ST and T wave abnormality, probably digitalis effect Abnormal ECG
[2016-08-30] MEDS: HYDROmorphone 0.5 mg/0.5 ml ISec IVP PRN ×4 (02:58→17:42)
[2016-08-30 07:37] LABS: BASO # 0.08 K/mm3 (0.0-2.0); BASO % 1.6 % (0.0-3.0); EOS # 0.5 (0.0-0.7); EOS % 8.9 % (1.5-5.0); GRAN # 3.61 (1.4-6.5); HEMOGLOBIN 8.4 gm/dL (14.0-18.0); LYMPH # 0.5 (1.2-3.4); LYMPH % 9.1 % (22.0-35.0); MEAN CELL VOLUME 68.8 fL (80.0-105.0); MEAN CORPUSCULAR HEMOGLOBIN 19.1 pg (25.0-35.0); MEAN CORPUSCULAR HGB CONC 27.8 g/dl (31.0-37.0); MONO # 0.5 (0.1-0.6); MONO % 9.4 % (1.0-6.0); PLATELET COUNT 129 10^3/uL (120.0-450.0); RBC 4.39 10^6/uL (3.5-6.1); RED CELL DISTRIBUTION WIDTH 23.7 % (11.5-14.5); WHITE BLOOD COUNT 5.1 10^3/ul (4.5-11.0)
--- NOTE | 2016-08-30 07:57 | CP.PCM.PN ---
Subjective - Date & Time of Evaluation Date of Evaluation: 08/30/16 Time of Evaluation: 07:00 - Subjective Subjective: Stable on 2R. S/P repair of umbilical hernia with incarcerated SB and removal of ascitic fluid. Lali. well. V/S noted. AF. No long pauses PE: Lungs: clear Cor.: irreg Abd: bandaged with binder Ext.: no edema Neuro.: alert I/O= 360/900 BC x2 NG at 24 hrs. Labs pending. Objective - Vital Signs/Intake and Output Vital Signs (last 24 hours): Temp Pulse Resp BP Pulse Ox 97.8 F 84 20 143/85 96 08/30/16 06:00 08/30/16 06:00 08/30/16 06:00 08/30/16 06:00 08/30/16 06:00 Intake and Output: 08/30/16 08/30/16 06:59 18:59 Intake Total 360 Output Total 300 Balance 60 - Medications Medications: Current Medications Hydromorphone HCl (Dilaudid) 0.5 mg IVP Q4H PRN PRN Reason: Pain, moderate (4-7) Last Admin: 08/30/16 02:58 Dose: 0.5 mg Ondansetron HCl (Zofran Inj) 4 mg IVP Q6H PRN PRN Reason: Nausea/Vomiting Last Admin: 08/29/16 04:09 Dose: 4 mg Pantoprazole Sodium (Protonix Inj) 40 mg IVP Q12 ALYSE Last Admin: 08/29/16 21:25 Dose: 40 mg - Labs Labs: 08/30/16 07:00 08/29/16 06:13 PT 13.8 Seconds (9.9-11.8) H 08/29/16 08:50 INR 1.28 (0.93-1.08) H 08/29/16 08:50 APTT 27.3 Seconds (23.7-30.8) 08/29/16 08:50 Assessment and Plan - Assessment and Plan (Free Text) Assessment: Abd. Pain Umbilical hernia with Small Bowel incarceration, repaired 08/29 GIB Cirrhosis with Esoph. Varices, Portal Hypertensive Gastropathy, GIB Ascites AF, no A/C due to risk of bleeding and falls. Long pauses while on dig and nadolol. Seizure Disorder ETOH S/P fall with head trauma and ICH HCV Anemia Former Smoker Plan: D/C dig. and nadolol. D/C ETOH Monitor on tel. If continued pauses: EP evaluation for PPM. Labs, TSH pending Check echo As per Surgery and GI Monitor labs, I/O, tel., sats., etc.
--- NOTE | 2016-08-30 07:58 | CP.PCM.PN ---
Subjective - Date & Time of Evaluation Date of Evaluation: 08/30/16 Time of Evaluation: 07:54 - Subjective Subjective: Surgery: Dr. Edwards Patient states he is feeling well today, much improved from yesterday. He denies flatus or BM. He tolerated CLD w/o n/v. Denies f/c. + voiding w/o difficulty. Had not been OOB as of this am. Objective - Vital Signs/Intake and Output Vital Signs (last 24 hours): Temp Pulse Resp BP Pulse Ox 97.8 F 84 20 143/85 96 08/30/16 06:00 08/30/16 06:00 08/30/16 06:00 08/30/16 06:00 08/30/16 06:00 Intake and Output: 08/30/16 08/30/16 06:59 18:59 Intake Total 360 Output Total 300 Balance 60 - Medications Medications: Current Medications Hydromorphone HCl (Dilaudid) 0.5 mg IVP Q4H PRN PRN Reason: Pain, moderate (4-7) Last Admin: 08/30/16 02:58 Dose: 0.5 mg Ondansetron HCl (Zofran Inj) 4 mg IVP Q6H PRN PRN Reason: Nausea/Vomiting Last Admin: 08/29/16 04:09 Dose: 4 mg Pantoprazole Sodium (Protonix Inj) 40 mg IVP Q12 ALYSE Last Admin: 08/29/16 21:25 Dose: 40 mg - Labs Labs: 08/30/16 07:00 08/29/16 06:13 PT 13.8 Seconds (9.9-11.8) H 08/29/16 08:50 INR 1.28 (0.93-1.08) H 08/29/16 08:50 APTT 27.3 Seconds (23.7-30.8) 08/29/16 08:50 - Constitutional Appears: Non-toxic, No Acute Distress - Head Exam Head Exam: ATRAUMATIC, NORMOCEPHALIC - Eye Exam Eye Exam: EOMI - ENT Exam ENT Exam: Mucous Membranes Moist - Respiratory Exam Respiratory Exam: NORMAL BREATHING PATTERN. absent: Respiratory Distress - Cardiovascular Exam Cardiovascular Exam: REGULAR RHYTHM. absent: Tachycardia - GI/Abdominal Exam GI & Abdominal Exam: Soft. absent: Distended, Guarding, Tenderness Additional comments: mid abdomen dressing CDI w/ overlying abdominal binder. - Extremities Exam Extremities Exam: Normal Inspection. absent: Calf Tenderness - Neurological Exam Neurological Exam: Alert, Awake - Skin Skin Exam: Normal Color, Warm Assessment and Plan - Assessment and Plan (Free Text) Assessment: 66 y/o male w/ incarcerated umbilical hernia s/p open primary repair POD1 Plan: -cont CLD -patient to be OOB as tolerated -incentive spirometer -f/u hgb, if stable ok to start DVT prophylaxis -if flatus or BM, can ADAT until goal of regular diet -further recs per Dr. Jerry Lewis PGY1
[2016-08-30 08:03] LABS: ALB/GLOB RATIO 0.7 (1.1-1.8); ALBUMIN 3.2 g/dL (3.0-4.8); ALT/SGPT 38 U/L (7-56); AST/SGOT 60 U/L (15-59); BLOOD UREA NITROGEN 15 mg/dL (7-21); CALCIUM 8.5 mg/dL (8.4-10.5); GFR AFRICAN-AMERICAN > 60; GFR NON-AFRICAN AMERICAN > 60
[2016-08-30 08:21] LABS: FREE T4 1.66 ng/dL (0.78-2.19)
[2016-08-31 06:41] LABS: BASO # 0.06 K/mm3 (0.0-2.0); BASO % 1.4 % (0.0-3.0); EOS # 0.3 (0.0-0.7); GRAN # 3.03 (1.4-6.5); GRAN % 73.3 % (50.0-68.0); LYMPH # 0.3 (1.2-3.4); LYMPH % 8.2 % (22.0-35.0); MEAN CELL VOLUME 69.1 fL (80.0-105.0); MEAN CORPUSCULAR HEMOGLOBIN 18.9 pg (25.0-35.0); MEAN CORPUSCULAR HGB CONC 27.3 g/dl (31.0-37.0); MONO # 0.5 (0.1-0.6); MONO % 11.1 % (1.0-6.0); PLATELET COUNT 122 10^3/uL (120.0-450.0); RBC 4.18 10^6/uL (3.5-6.1); RED CELL DISTRIBUTION WIDTH 23.8 % (11.5-14.5); WHITE BLOOD COUNT 4.1 10^3/ul (4.5-11.0)
[2016-08-31 07:08] LABS: HEMOGLOBIN 7.9 gm/dL (14.0-18.0)
--- NOTE | 2016-08-31 07:47 | CP.PCM.PN ---
Subjective - Date & Time of Evaluation Date of Evaluation: 08/31/16 Time of Evaluation: 07:41 - Subjective Subjective: Surgery: Dr. Edwards Patient doing well today. Denies pain to the abdomen, denies n/v. Reports normal bowel movement this am. Reports feeling hungry. Has been OOB yesterday. Objective - Vital Signs/Intake and Output Vital Signs (last 24 hours): Temp Pulse Resp BP Pulse Ox 98.7 F 97 H 18 136/76 99 08/31/16 05:59 08/31/16 05:59 08/31/16 05:59 08/31/16 05:59 08/30/16 17:34 - Medications Medications: Current Medications Hydromorphone HCl (Dilaudid) 0.5 mg IVP Q4H PRN PRN Reason: Pain, moderate (4-7) Last Admin: 08/30/16 17:42 Dose: 0.5 mg Ondansetron HCl (Zofran Inj) 4 mg IVP Q6H PRN PRN Reason: Nausea/Vomiting Last Admin: 08/29/16 04:09 Dose: 4 mg Pantoprazole Sodium (Protonix Inj) 40 mg IVP Q12 ALYSE Last Admin: 08/30/16 21:10 Dose: 40 mg - Labs Labs: 08/31/16 05:30 08/30/16 07:00 PT 13.8 Seconds (9.9-11.8) H 08/29/16 08:50 INR 1.28 (0.93-1.08) H 08/29/16 08:50 APTT 27.3 Seconds (23.7-30.8) 08/29/16 08:50 - Constitutional Appears: Well, Non-toxic, No Acute Distress - Head Exam Head Exam: ATRAUMATIC, NORMOCEPHALIC - Eye Exam Eye Exam: EOMI, Normal appearance - ENT Exam ENT Exam: Mucous Membranes Moist - Respiratory Exam Respiratory Exam: NORMAL BREATHING PATTERN. absent: Respiratory Distress - Cardiovascular Exam Cardiovascular Exam: REGULAR RHYTHM. absent: Tachycardia - GI/Abdominal Exam GI & Abdominal Exam: Distended, Soft. absent: Tenderness, Rebound Additional comments: incision clean dry and intact w/ staple closure - Neurological Exam Neurological Exam: Alert, Awake - Psychiatric Exam Psychiatric exam: Normal Affect, Normal Mood - Skin Skin Exam: Dry, Warm Assessment and Plan - Assessment and Plan (Free Text) Assessment: 66 y/o male w/ incarcerated umbilical hernia s/p open primary repair POD2 Plan: -ok for reg diet -encourage OOB and IS use -cont to wear binder upon discharge with ambulation -no lifting greater than 10lbs until cleared by surgeon -anemia, most likely of chronic disease -f/u in 1-2 weeks -ok to be discharged from surgical standpoint AKWhite PGY1
--- NOTE | 2016-08-31 08:35 | CP.PCM.PN ---
Subjective - Date & Time of Evaluation Date of Evaluation: 08/31/16 Time of Evaluation: 07:00 - Subjective Subjective: Stable on 2R. S/P repair of umbilical hernia with incarcerated SB and removal of ascitic fluid. Lali. well. No CP or SOB. V/S noted. AF. No long pauses PE: Lungs: clear Cor.: irreg Abd: bandaged with binder Ext.: no edema Neuro.: alert I/O= 360/900 BC x2 NG at 48 hrs. Labs noted: H/H = 7.9/28.9, TFT's NL Objective - Vital Signs/Intake and Output Vital Signs (last 24 hours): Temp Pulse Resp BP Pulse Ox 98.7 F 97 H 18 136/76 99 08/31/16 05:59 08/31/16 05:59 08/31/16 05:59 08/31/16 05:59 08/30/16 17:34 - Medications Medications: Current Medications Ondansetron HCl (Zofran Inj) 4 mg IVP Q6H PRN PRN Reason: Nausea/Vomiting Last Admin: 08/29/16 04:09 Dose: 4 mg Pantoprazole Sodium (Protonix Inj) 40 mg IVP Q12 ALYSE Last Admin: 08/30/16 21:10 Dose: 40 mg - Labs Labs: 08/31/16 05:30 08/30/16 07:00 PT 13.8 Seconds (9.9-11.8) H 08/29/16 08:50 INR 1.28 (0.93-1.08) H 08/29/16 08:50 APTT 27.3 Seconds (23.7-30.8) 08/29/16 08:50 Assessment and Plan - Assessment and Plan (Free Text) Assessment: Abd. Pain Umbilical hernia with Small Bowel incarceration, repaired 08/29 GIB Cirrhosis with Esoph. Varices, Portal Hypertensive Gastropathy, GIB Ascites AF, no A/C due to risk of bleeding and falls. Long pauses while on dig and nadolol. Seizure Disorder ETOH S/P fall with head trauma and ICH HCV Anemia Former Smoker Plan: D/C dig. and nadolol. D/C ETOH Monitor on tel. If continued pauses: EP evaluation for PPM. Check echo As per Surgery and GI Monitor labs, I/O, tel., sats., etc.
--- NOTE | 2016-08-31 12:27 | PN ---
DATE: 08/31/2016 SUBJECTIVE: The patient is lying in bed, comfortable. He is postop day 2 of incarcerated umbilical hernia repair. The patient's blood count has been slowly trending downward over the last 3 days. He did receive blood transfusions for anemia on admission to the hospital. He denies any overt GI blee ding such as melena, hematemesis or rectal bleeding. He denies any abdominal pain, nausea or vomitin g. PHYSICAL EXAMINATION: VITAL SIGNS: Reveal temperature of 98.4, blood pressure 136/86, heart rate of 100. HEENT: Reveals sclerae to be white, conjunctivae pale. NECK: Supple. CHEST: Reveals lungs to be clear. HEART: Reveals an irregularly regular rate. ABDOMEN: Soft. He has a dry dressing over his umbilical surgical wound. EXTREMITIES: Show no edema. LABORATORY DATA: Reveal white blood cell count 4.1, hemoglobin 7.9, platelet count of 122,000. Chem istries reveal total bilirubin 3.1, AST 60, ALT 38, alkaline phosphatase of 89. IMPRESSION: A 66-year-old male admitted to the hospital with pain over an incarcerated umbilical her nora, status post umbilical hernia repair with known cirrhosis of the liver, seizure disorders, histor y of hepatitis C and alcoholism, with recurrent anemia despite blood transfusions. There is no repor t of any overt gastrointestinal bleeding. RECOMMENDATIONS: 1. The patient is to receive 2 units of packed red blood cells today. 2. I will schedule the patient for an upper endoscopy for the morning. Landry Gavin MD cc: [id number] TT: 08/31/2016 12:26:26 Confirmation # [id number] Dictation # [id number] mn
--- NOTE | 2016-09-01 01:00 | CP.PCM.PN ---
Subjective - Date & Time of Evaluation Date of Evaluation: 08/31/16 Time of Evaluation: 23:00 - Subjective Subjective: Patient complained of abdominal pain. Was seen at bedside. Has no other complaints at this time. Denies chest pain , sob, nausea, vomiting. Medical record was reviewed. This 66 year old white male was admitted with abdominal pain, nausea, had umbilical hernia with bowel loops. Has PMH of Cirrhosis, umbilical hernia, claudication, seizure, head injury, hepatitis C. Objective - Vital Signs/Intake and Output Vital Signs (last 24 hours): Temp Pulse Resp BP Pulse Ox 98.8 F 96 H 18 130/78 99 08/31/16 17:52 08/31/16 18:00 08/31/16 17:52 08/31/16 17:52 08/30/16 17:34 Intake and Output: 08/31/16 09/01/16 18:59 06:59 Intake Total 990 Output Total 350 Balance 640 - Medications Medications: Current Medications Ondansetron HCl (Zofran Inj) 4 mg IVP Q6H PRN PRN Reason: Nausea/Vomiting Last Admin: 08/29/16 04:09 Dose: 4 mg Pantoprazole Sodium (Protonix Inj) 40 mg IVP Q12 ALYSE Last Admin: 08/31/16 22:33 Dose: 40 mg - Labs Labs: 08/31/16 05:30 08/30/16 07:00 PT 13.8 Seconds (9.9-11.8) H 08/29/16 08:50 INR 1.28 (0.93-1.08) H 08/29/16 08:50 APTT 27.3 Seconds (23.7-30.8) 08/29/16 08:50 Micro Results 08/28/16 17:50 Blood-Venous Blood Culture - Preliminary NO GROWTH AFTER 3 DAYS 08/28/16 15:35 Blood-Venous Blood Culture - Preliminary NO GROWTH AFTER 3 DAYS Most Recent Lab Values WBC 4.1 10^3/ul (4.5-11.0) L 08/31/16 05:30 RBC 4.18 10^6/uL (3.5-6.1) 08/31/16 05:30 Hgb 7.9 gm/dL (14.0-18.0) L 08/31/16 05:30 Hct 28.9 % (42.0-52.0) L 08/31/16 05:30 MCV 69.1 fL (80.0-105.0) L 08/31/16 05:30 MCH 18.9 pg (25.0-35.0) L 08/31/16 05:30 MCHC 27.3 g/dl (31.0-37.0) L 08/31/16 05:30 RDW 23.8 % (11.5-14.5) H 08/31/16 05:30 Plt Count 122 10^3/uL (120.0-450.0) 08/31/16 05:30 Gran % 73.3 % (50.0-68.0) H 08/31/16 05:30 Lymph % (Auto) 8.2 % (22.0-35.0) L 08/31/16 05:30 Guadalupe % (Auto) 11.1 % (1.0-6.0) H 08/31/16 05:30 Eos % (Auto) 6.0 % (1.5-5.0) H 08/31/16 05:30 Baso % (Auto) 1.4 % (0.0-3.0) 08/31/16 05:30 Gran # 3.03 (1.4-6.5) 08/31/16 05:30 Lymph # 0.3 (1.2-3.4) L 08/31/16 05:30 Guadalupe # 0.5 (0.1-0.6) 08/31/16 05:30 Eos # 0.3 (0.0-0.7) 08/31/16 05:30 Baso # 0.06 K/mm3 (0.0-2.0) 08/31/16 05:30 Neutrophils % (Manual) 86 % (50.0-70.0) H 08/29/16 06:13 Band Neutrophils % 6 % (0-2) H 08/29/16 06:13 Lymphocytes % (Manual) 4 % (22.0-35.0) L 08/29/16 06:13 Monocytes % (Manual) 2 % (1.0-6.0) 08/29/16 06:13 Eosinophils % (Manual) 1 % (0.0-3.0) 08/29/16 06:13 Basophils % (Manual) 1 % (0.0-1.0) 08/29/16 06:13 Platelet Evaluation Normal (NORMAL) 08/29/16 06:13 Hypochromasia 2+ 08/29/16 06:13 Target Cells 1+ 08/29/16 06:13 PT 13.8 Seconds (9.9-11.8) H 08/29/16 08:50 INR 1.28 (0.93-1.08) H 08/29/16 08:50 APTT 27.3 Seconds (23.7-30.8) 08/29/16 08:50 pO2 24 mm/Hg (30-55) L 08/28/16 15:35 VBG pH 7.42 (7.32-7.43) 08/28/16 15:35 VBG pCO2 46.0 (40-60) 08/28/16 15:35 VBG HCO3 29.8 mmol/l (21-28) H 08/28/16 15:35 VBG Total CO2 31.2 mmol.L (22-28) H 08/28/16 15:35 VBG O2 Sat (Calc) 38.2 % (40-65) L 08/28/16 15:35 VBG Base Excess 4.8 mmol/L (0.0-2.0) H 08/28/16 15:35 VBG Potassium 4.2 mmol/L (3.6-5.2) 08/28/16 15:35 Sodium 140.0 mmol/L (132-148) 08/28/16 15:35 Chloride 108.0 mmol/L (98-107) H 08/28/16 15:35 Glucose 107 mg/dl (75-110) 08/28/16 15:35 Lactate 2.0 mmol/L (0.7-2.1) 08/28/16 15:35 FiO2 21.0 % 08/28/16 15:35 Sodium 139 mmol/L (132-148) 08/30/16 07:00 Potassium 4.3 mmol/L (3.6-5.0) 08/30/16 07:00 Chloride 104 mmol/L (95-110) 08/30/16 07:00 Carbon Dioxide 28 mmol/L (21-33) 08/30/16 07:00 Anion Gap 11 (10-20) 08/30/16 07:00 BUN 15 mg/dL (7-21) 08/30/16 07:00 Creatinine 0.9 mg/dL (0.5-1.4) 08/30/16 07:00 Est GFR ( Amer) > 60 08/30/16 07:00 Est GFR (Non-Af Amer) > 60 08/30/16 07:00 Random Glucose 99 mg/dL (70-110) 08/30/16 07:00 Lactic Acid 1.4 mmol/L (0.7-2.1) 08/29/16 06:15 Calcium 8.5 mg/dL (8.4-10.5) 08/30/16 07:00 Phosphorus 4.9 mg/dL (2.5-4.5) H 08/29/16 06:13 Magnesium 1.6 mg/dL (1.7-2.2) L 08/29/16 06:13 Total Bilirubin 3.1 mg/dL (0.2-1.3) H 08/30/16 07:00 AST 60 U/L (15-59) H 08/30/16 07:00 ALT 38 U/L (7-56) 08/30/16 07:00 Alkaline Phosphatase 89 U/L (38-133) 08/30/16 07:00 Lactate Dehydrogenase 585 U/L (333-699) 08/28/16 15:35 Total Creatine Kinase 127 U/L (35-230) 08/28/16 15:35 Troponin I < 0.01 ng/mL 08/29/16 06:13 Total Protein 8.1 g/dL (5.8-8.3) 08/30/16 07:00 Albumin 3.2 g/dL (3.0-4.8) 08/30/16 07:00 Globulin 4.8 gm/dL 08/30/16 07:00 Albumin/Globulin Ratio 0.7 (1.1-1.8) L 08/30/16 07:00 Amylase 119 U/L (35-125) 08/28/16 15:35 Lipase 55 U/L (23-300) 08/28/16 15:35 Free T4 1.66 ng/dL (0.78-2.19) 08/30/16 07:00 TSH 3rd Generation 2.22 mIU/mL (0.46-4.68) 08/30/16 07:00 Venous Blood Potassium 4.2 mmol/L (3.6-5.2) 08/28/16 15:35 Urine Color Yellow (YELLOW) 08/29/16 02:00 Urine Appearance Clear (CLEAR) 08/29/16 02:00 Urine pH 6.5 (4.7-8.0) 08/29/16 02:00 Ur Specific W[place]sworth 1.015 (1.005-1.035) 08/29/16 02:00 Urine Protein Trace mg/dL (<30 mg/dL) H 08/29/16 02:00 Urine Glucose (UA) Negative mg/dL (NEGATIVE) 08/29/16 02:00 Urine Ketones Negative mg/dL (NEGATIVE) 08/29/16 02:00 Urine Blood Negative (NEGATIVE) 08/29/16 02:00 Urine Nitrate Negative (NEGATIVE) 08/29/16 02:00 Urine Bilirubin Small (NEGATIVE) H 08/29/16 02:00 Urine Urobilinogen 2.0 E.U./dL (<1 E.U./dL) H 08/29/16 02:00 Ur Leukocyte Esterase Negative Julieth/uL (NEGATIVE) 08/29/16 02:00 Urine RBC 0 - 2 /hpf (0-2) 08/29/16 02:00 Urine WBC 2 - 5 /hpf (0-6) 08/29/16 02:00 Ur Epithelial Cells 0 - 2 /hpf (0-5) 08/29/16 02:00 Urine Bacteria Occ (NEG) 08/29/16 02:00 Digoxin 0.7 ng/mL (0.8-2.0) L 08/28/16 15:35 Alcohol, Quantitative < 10 mg/dL (0-10) 08/28/16 15:35 Blood Type O POSITIVE 08/31/16 08:55 Blood Type Confirm O POSITIVE 08/28/16 20:32 Antibody Screen Negative 08/31/16 08:55 Crossmatch See Detail 08/31/16 08:55 BBK History Checked Patient has bt 08/31/16 08:55 - Constitutional Appears: Well, No Acute Distress - Head Exam Head Exam: ATRAUMATIC, NORMAL INSPECTION, NORMOCEPHALIC - Eye Exam Eye Exam: Normal appearance - ENT Exam ENT Exam: Normal External Ear Exam - Neck Exam Neck Exam: Normal Inspection - Respiratory Exam Respiratory Exam: NORMAL BREATHING PATTERN - Cardiovascular Exam Cardiovascular Exam: absent: JVD - GI/Abdominal Exam GI & Abdominal Exam: Distended (Mild.), Hypoactive Bowel Sounds. absent: Tenderness - Rectal Exam Rectal Exam: Deferred - Extremities Exam Extremities Exam: Normal Inspection - Back Exam Back Exam: NORMAL INSPECTION - Neurological Exam Neurological Exam: Alert, Oriented x3 - Psychiatric Exam Psychiatric exam: Normal Affect, Normal Mood - Skin Skin Exam: Normal Color Assessment and Plan - Assessment and Plan (Free Text) Assessment: Abdominal pain-post surgical. Umbilical hernia-strangulated.S/P repair. History seizure. History hepatitis c. Plan: Ultram 50 mg PO now. Continue present management.
--- NOTE | 2016-09-01 08:08 | CARD ---
APPROVED REPORT EXAM: Two-dimensional and M-mode echocardiogram with Doppler and color Doppler. Other Information Quality : AverageRhythm : INDICATION Atrial Fibrillation 2D DIMENSIONS Left Atrium (2D)6.3 (1.6-4.0cm)IVSd1.2 (0.7-1.1cm) LVDd5.2 (3.9-5.9cm)PWd1.2 (0.7-1.1cm) LVDs3.3 (2.5-4.0cm)FS (%) 36.9 % LVEF (%)66.0 (>50%) M-Mode DIMENSIONS Aortic Root3.60 (2.2-3.7cm)Aortic Cusp Exc.2.60 (1.5-2.0cm) Aortic Valve AoV Peak Cnqzaguj821.0cm/s Mitral Valve E/A ratio0.0 TDI E/Lateral E'0.0E/Medial E'0.0 Pulmonary Valve PV Peak Axruqaiz64.3cm/sPV Peak Grad.3mmHg Tricuspid Valve TR Peak [id number]/sRAP [id number] Peak Gr.38mmHg [id number] LEFT VENTRICLE The left ventricle is normal size. There is mild concentric left ventricular hypertrophy. The left ventricular function is normal. The left ventricular ejection fraction is within the normal range. There is normal LV segmental wall motion. RIGHT VENTRICLE The right ventricle is normal size. ATRIA The left atrium is severely dilated. The right atrium is mildly dilated. The interatrial septum is intact with no evidence for an atrial septal defect. AORTIC VALVE The aortic valve is mildly calcified. MITRAL VALVE The mitral valve is normal in structure. Mitral regurgitation is moderate to severe. TRICUSPID VALVE The tricuspid valve is normal in structure. There is mild tricuspid regurgitation. There is moderate pulmonary hypertension. PULMONIC VALVE The pulmonic valve is not well visualized. GREAT VESSELS The aortic root is normal in size. PERICARDIAL EFFUSION There is no pericardial effusion. <Conclusion> The left ventricle is normal size. There is mild concentric left ventricular hypertrophy. The left ventricular function is normal. Mitral regurgitation is moderate to severe. There is mild tricuspid regurgitation. There is moderate pulmonary hypertension.
--- NOTE | 2016-09-01 08:16 | CP.PCM.PN ---
Subjective - Date & Time of Evaluation Date of Evaluation: 09/01/16 Time of Evaluation: 07:00 - Subjective Subjective: Stable on 2R. S/P repair of umbilical hernia with incarcerated SB and removal of ascitic fluid. Lali. well. No CP or SOB. + abd. pain last night. V/S noted. AF. No long pauses PE: Lungs: clear Cor.: irreg Abd: bandaged with binder Ext.: no edema Neuro.: alert I/O= 1230/591 BC x2 NG at 3 days Labs 08/31 noted: H/H = 7.9/28.9, TFT's NL Echo: Nl LV fx. with mild conc. LVH, Mod/Severe MR, Mild TR, Mod. PH Objective - Vital Signs/Intake and Output Vital Signs (last 24 hours): Temp Pulse Resp BP Pulse Ox 98.1 F 78 20 147/93 H 97 09/01/16 06:00 09/01/16 06:00 09/01/16 06:00 09/01/16 06:00 09/01/16 06:00 Intake and Output: 09/01/16 09/01/16 06:59 18:59 Intake Total 240 Output Total 241 Balance -1 - Medications Medications: Current Medications Ondansetron HCl (Zofran Inj) 4 mg IVP Q6H PRN PRN Reason: Nausea/Vomiting Last Admin: 08/29/16 04:09 Dose: 4 mg Pantoprazole Sodium (Protonix Inj) 40 mg IVP Q12 ALYSE Last Admin: 08/31/16 22:33 Dose: 40 mg - Labs Labs: 08/31/16 05:30 08/30/16 07:00 PT 13.8 Seconds (9.9-11.8) H 08/29/16 08:50 INR 1.28 (0.93-1.08) H 08/29/16 08:50 APTT 27.3 Seconds (23.7-30.8) 08/29/16 08:50 Assessment and Plan - Assessment and Plan (Free Text) Assessment: Abd. Pain Umbilical hernia with Small Bowel incarceration, repaired 08/29 Anemia/GIB Cirrhosis with Esoph. Varices, Portal Hypertensive Gastropathy, GIB Ascites AF, no A/C due to risk of bleeding and falls. Long pauses while on dig and nadolol. Seizure Disorder ETOH S/P fall with head trauma and ICH HCV Anemia Former Smoker Echo: Nl LV with mild LVH, Mod/Sev MR, Mild TR, mod. PH Plan: D/C dig. and nadolol. D/C ETOH Monitor on tel. If continued pauses: EP evaluation for PPM. As per Surgery and GI > EGD today Monitor labs, I/O, H/H, tel., sats., etc.
--- NOTE | 2016-09-01 09:53 | CP.PCM.PN ---
Subjective - Date & Time of Evaluation Date of Evaluation: 09/01/16 Time of Evaluation: 07:15 - Subjective Subjective: General Surgery Progress Note for Dr. Edwards Patient seen and examined at bedside. No acute events overnight. Patient does not complain of pain. NPO for further GI workup. Denies headache, fever, chills , shortness of breath, chest pain, nausea or vomiting. Objective - Vital Signs/Intake and Output Vital Signs (last 24 hours): Temp Pulse Resp BP Pulse Ox 98.1 F 78 20 147/93 H 97 09/01/16 06:00 09/01/16 06:00 09/01/16 06:00 09/01/16 06:00 09/01/16 06:00 Intake and Output: 09/01/16 09/01/16 06:59 18:59 Intake Total 240 Output Total 241 Balance -1 - Medications Medications: Current Medications Ondansetron HCl (Zofran Inj) 4 mg IVP Q6H PRN PRN Reason: Nausea/Vomiting Last Admin: 08/29/16 04:09 Dose: 4 mg Pantoprazole Sodium (Protonix Inj) 40 mg IVP Q12 ALYSE Last Admin: 08/31/16 22:33 Dose: 40 mg - Labs Labs: 08/31/16 05:30 08/30/16 07:00 PT 13.8 Seconds (9.9-11.8) H 08/29/16 08:50 INR 1.28 (0.93-1.08) H 08/29/16 08:50 APTT 27.3 Seconds (23.7-30.8) 08/29/16 08:50 - Constitutional Appears: Well, Non-toxic, No Acute Distress - Head Exam Head Exam: ATRAUMATIC, NORMAL INSPECTION - Eye Exam Eye Exam: Normal appearance - ENT Exam ENT Exam: Mucous Membranes Moist - Respiratory Exam Respiratory Exam: NORMAL BREATHING PATTERN. absent: Respiratory Distress - Cardiovascular Exam Cardiovascular Exam: +S1, +S2 - GI/Abdominal Exam GI & Abdominal Exam: Soft Additional comments: incision clean dry and intact w/ staple closure, no erythema appreciated - Neurological Exam Neurological Exam: Alert, Awake, Oriented x3 - Psychiatric Exam Psychiatric exam: Normal Affect, Normal Mood - Skin Skin Exam: Dry, Warm Assessment and Plan - Assessment and Plan (Free Text) Assessment: 66 year old male with incarcerated umbilical hernia s/p open primary repair POD #3 Plan: -Continue to OOB and IS use -continue to wear binder upon discharge with ambulation -No lifting greater than 10lbs until cleared by surgeon -Anemia, most likely of chronic disease -f/u outpatient in 1-2 weeks -Ok to be discharged from surgical standpoint -Will d/w attending
[2016-09-01 10:57] LABS: BASO # 0.05 K/mm3 (0.0-2.0); BASO % 1.3 % (0.0-3.0); EOS # 0.3 (0.0-0.7); EOS % 6.7 % (1.5-5.0); GRAN # 2.61 (1.4-6.5); GRAN % 70.2 % (50.0-68.0); HEMOGLOBIN 9.3 gm/dL (14.0-18.0); LYMPH # 0.4 (1.2-3.4); LYMPH % 10.8 % (22.0-35.0); MEAN CELL VOLUME 70.4 fL (80.0-105.0); MEAN CORPUSCULAR HEMOGLOBIN 20.7 pg (25.0-35.0); MEAN CORPUSCULAR HGB CONC 29.4 g/dl (31.0-37.0); MONO # 0.4 (0.1-0.6); PLATELET COUNT 100 10^3/uL (120.0-450.0); RBC 4.49 10^6/uL (3.5-6.1); RED CELL DISTRIBUTION WIDTH 24.4 % (11.5-14.5); WHITE BLOOD COUNT 3.7 10^3/ul (4.5-11.0)
[2016-09-01 11:42] VITALS: TEMP 97.8
[2016-09-01] MEDS ORDERED: Lidocaine 1% Inj (20ml) ONE (12:01)
[2016-09-01] MEDS ORDERED: Propofol 10 mg/ml Inj (20 ML) ONE (12:02)
[2016-09-01] MEDS ORDERED: Etomidate 20 mg/10ml Inj IV ONE (12:02)
[2016-09-01 12:29] VITALS: O2SAT 99
[2016-09-01] MEDS ORDERED: Sodium Chloride 0.9% 1,000 ML IV SCH (12:45)
[2016-09-01 12:54] VITALS: BP 162/96; PULSE 76; RESP 15
--- NOTE | 2016-09-16 14:34 | PCM.OP ---
Operative Report - Operative Report Date of Surgery/Procedure: 08/31/16 Time of Surgery/Procedure: 10:05 Surgeon: Meño Edwards Anesthesia/Sedation: See anesthesia note Pre-Operative Diagnosis: Incarcerated umbilical hernia Post-Operative Diagnosis: Incarcerated umbilical hernia Indication for Surgery: Incarcerated umbilical hernia Operative Findings: Incarcerated umbilical hernia Procedure/Operation Description: Open repair of umbilical hernia. In the OR patient was identified of name and procedure, laterality, my name Lex, consent , and his wristand. His incarcerated hernia which is relatively small in the face of ascites and portal hypertension. An intraumbilical incision was made from time out and having had him be prepped and draped. The hernia was circumferentially dissected and the sack opened. There was ischemia to the intestine but once the incision was enlarged it pinked up very nicely without issue. It was opened up and inseamed very nicely and popped into the belly. Re- examination on the end of the case failed to find ischemia. The abdomen was cleaned and prepped. Because of the ascites, the incision was closed with a Leonard- Dick/Smead-Dick type closure using prolay. About 5 sutures were placed, the wound was irrigated and dried. The subcutaneous tissue was closed and the skin was closed with rizwan because of the ascites. Pressure dressing was applied having removed about a liter of ascites. Patient was taken to the recovery room in good condition. Estimated Blood Loss: Minimal Complications: None Discharge & Condition: Patient was taken to the recovery room in good condition.
--- NOTE | 2016-09-18 15:04 | PCM.OP ---
Operative Report - Operative Report Date of Surgery/Procedure: 08/29/16 Surgeon: Dr. Edwards Pre-Operative Diagnosis: 1.Ascites. 2.Incarcerated umbilical hernia Post-Operative Diagnosis: 1.Ascites. 2.Incarcerated umbilical hernia Indication for Surgery: 1.Ascites. 2.Incarcerated umbilical hernia Operative Findings: There was some ischemic knuckle of bile. The counter incision was made laterally and this relieved the ischemia very nicely. This allowed us to easily reduce the small bowel, 2 liters of ascites was then removed. The abdomen was then examined, I was afraid to put mesh in the face of the ascites. Procedure/Operation Description: Operation performed is repair, in the operating room patient was identified by procedural laterality, his consent, and my ismael on his wristband. Area was prepped and draped with antibiotics and a periumbilical incision was made to the skin the tissues. The hernia sac was dissected off the umbilicus very nicely, the hernia sac was then entered. The incision was then closed with the sutures of number 1 Novafil , about 4 stitches were placed to get a good effect. The subcutaneous history was closed and the umbilicus was pegged to abdominal wall for an inny belly button. The incision was then closed with rizwan and injected with Marcaine. Discharge & Condition: Patient was taken to recovery in good condition after instrument count was declared correct.
--- NOTE | 2016-09-30 13:23 | PCM.OP ---
Operative Report - Operative Report Date of Surgery/Procedure: 09/19/16 Surgeon: Dr. Meño Edwards Pre-Operative Diagnosis: Incarcerated hernia Post-Operative Diagnosis: Incarcerated hernia Procedure/Operation Description: Umbilical herniorrhaphy. In the operating room , patient identified by name, number, and procedure laterality, my ismael, and the consent and his wristband. The patient has cirrhosis, ascites, and an incarcerated hernia. After a successful timeout, the patient was prepped and draped. An umbilical incision was made through the skin that the tissues down to the fascia. The fascia was circumferentially dissected and the hernia sac taken off the skin. The hernia was then opened and once we made a slight counter incision on the side, the intestine pinked up nicely without necrosis, it slipped back very nicely. At the end of the case, we were able to reexamine it and we were satisfied, it was unremarkable. The fascia was cleaned and it was then closed with a [id number] suture of 0 Prolene. Multiple stitches were placed, these were pulled up simultaneously after the incision was examined digitally. There was nothing on torque, these were tied after two liters of ascites were removed. Patient was taken to recovery room in good condition after the skin was closed. The umbilicus was pulled down to the fascia very nicely. Light dressing was applied. Skin was closed with rizwan. Discharge & Condition: In good condition
--- NOTE | 2016-09-30 15:30 | OP ---
Dr. Edwards Pt: Yariel To DOS: 08/31/16 [id number] Yariel To is noted to have ascites and an incarcerated umbilical hernia which is tender. The abd was irrigated and dried and then prepped with Betadine. After successful time out, the pt was tested for name/ number/ birthday wristband, my ismael and my consent. The operation proceeded through a prepped and draped field. Incision made through subcutaneous tissues. The sac was open and showing some ischemic bowel. The ischemic bowel could not be easily be reduced. A counter incision was made on the lateral side which allowed the bowel to pink up nicely. It was reduced and warmed up inside the abd. As we re-examined, there was nothing on torque. The bowel was reproduced into the incision and it was viable. Incision was enclosed, ascites was removed and was closed with #1 Prolene. Pt was taken to recovery room in good condition after skin was closed with rizwan and multiple layers were used to close subcutaneous tissues. This was well tolerated. Meño Edwards MD [facility] CENTERMikaela
== END 2016-09-01 15:10 | disposition home or self-care (01) | DRG 354 ==
LOC: ED 16:54 → ERH 20:25 → 2RSO 08-29 01:38
PROVIDERS: ADMIT Internal Medicine; ATTEND Internal Medicine
PROC: 30233N1 Transfusion of Nonautologous Red Blood Cells into Peripheral Vein, Percutaneous Approach (ICD-10-PCS; 2016-08-28)
PROC: 0W9F3ZZ Drainage of Abdominal Wall, Percutaneous Approach (ICD-10-PCS; 2016-08-29)
PROC: 0WQF0ZZ Repair Abdominal Wall, Open Approach (ICD-10-PCS; principal; 2016-08-29 10:05)
PROC: 0DJ08ZZ Inspection of Upper Intestinal Tract, Via Natural or Artificial Opening Endoscopic (ICD-10-PCS; 2016-09-01)
DX: K42.0 Umbilical hernia with obstruction, without gangrene (principal); I85.10 Secondary esophageal varices without bleeding; I48.2 Chronic atrial fibrillation; K76.6 Portal hypertension; K70.31 Alcoholic cirrhosis of liver with ascites; G40.909 Epilepsy, unspecified, not intractable, without status epilepticus; B19.20 Unspecified viral hepatitis C without hepatic coma; D50.0 Iron deficiency anemia secondary to blood loss (chronic); K31.89 Other diseases of stomach and duodenum; Z87.891 Personal history of nicotine dependence

== ENCOUNTER 2017-12-20 07:51 | Inpatient (IN) | payer MEDICARE ==
[2017-12-20 07:59] VITALS: BMI 25.1
--- NOTE | 2017-12-20 08:30 | ED PDOC ---
Arrival/HPI - General Historian: Patient EM Caveat: Other (Poor Historian) - History of Present Illness Narrative History of Present Illness (Text): 12/20/17 08:22 Pt is a 67 yo M with pmhx of seizures, GERD, Afib, hernia, GI bleed, and cirrhosis who presents for fall. Pt is a poor historian and is not accompanied by family. He states that about an hour ago he got up to use the bathroom and while using the bathroom he was using his towel ha to hold himself and the towel ha broke. He states he fell and hit his head, on the wall behind him. He is unsure of if he had any LOC, but remembers his helping to get him up when he slipped and fell again. He states that at this time he is not having any feelings of lightheadedness, dizziness or weakness. He does admit to having a headache 6/10 in intensity that is non-radiating. He denies any vision changes, hearing changes, numbness or focal weakness. He denies any fevers, chills, SOB, chest pain, abd pain, nausea, vomiting, dysuria or frequency. Pmhx: Seizures, GI bleed, Hernia, GERD, Afib, cirrhosis Pshx: Hernia repair Meds: Digoxin, omeprazole, nadolol, lasix, aldactone All: NKDA Soc: Quit smoking 11 years ago, currently drinks 2-3 beers/day, denies any illicit drug use Fam Hx: Denies Time/Duration: 1-3 hours Symptom Onset: Sudden Symptom Course: Unchanged Severity Level: 6 <Tahira Alex - Last Filed: 12/20/17 12:19> <Noam Frankel - Last Filed: 12/20/17 12:50> - General Time Seen by Provider: 12/20/17 07:53 Past Medical History - Provider Review Nursing Documentation Reviewed: Yes - Cardiac Hx Cardiac Arrhythmia: Yes (AFIB) - Pulmonary Hx Respiratory Disorders: No - Neurological Hx Neurological Disorder: No Hx Seizures: Yes - HEENT Hx HEENT Disorder: No - Renal Hx Renal Disorder: No - Endocrine/Metabolic Hx Endocrine Disorders: No - Hematological/Oncological Hx Blood Transfusions: Yes Hx Blood Transfusion Reaction: No - Integumentary Hx Dermatological Disorder: No - Musculoskeletal/Rheumatological Hx Falls: Yes - Gastrointestinal Other/Comment: cirrhosis - Genitourinary/Gynecological Hx Genitourinary Disorders: No - Psychiatric Hx Psychophysiologic Disorder: No Hx Depression: No Hx Emotional Abuse: No Hx Physical Abuse: No Hx Substance Use: No - Surgical History Hx Inguinal Hernia Repair: Yes Hx Orthopedic Surgery: Yes (LEFT TOTAL KNEE REPLACEMENT) Other/Comment: pt states he had a band put on his esophagus in [place]. Knee surgery - Anesthesia Hx Anesthesia Reactions: No Hx Malignant Hyperthermia: No - Suicidal Assessment Feels Threatened In Home Enviroment: No <Tahira Alex - Last Filed: 12/20/17 12:19> Family/Social History - Physician Review Nursing Documentation Reviewed: Yes Family/Social History: No Known Family HX Smoking Status: Former Smoker Hx Alcohol Use: Yes Frequency of alcohol use: Few days per week Hx Substance Use: No <Tahira Alex - Last Filed: 12/20/17 12:19> Allergies/Home Meds <Tahira Alex - Last Filed: 12/20/17 12:19> <Noam Frankel - Last Filed: 12/20/17 12:50> Allergies/Adverse Reactions: Allergies No Known Allergies Allergy (Verified 12/20/17 08:11) Home Medications: Home Meds Medication Instructions Recorded Confirmed Omeprazole [PrilOSEC] 40 mg PO DAILY 12/19/11 12/20/17 Digoxin [Lanoxin] 0.25 mg PO DAILY 08/28/16 12/20/17 Nadolol [Corgard] 40 mg PO DAILY 12/20/17 12/20/17 Review of Systems - Physician Review All systems were reviewed & negative as marked: Yes - Review of Systems Respiratory: absent: SOB, Cough Cardiovascular: absent: Chest Pain Gastrointestinal: absent: Abdominal Pain, Nausea, Vomiting Genitourinary Male: absent: Dysuria, Hematuria Musculoskeletal: absent: Back Pain, Neck Pain Neurological: absent: Headache, Focal Weakness, Speech Changes <Tahira Alex - Last Filed: 12/20/17 12:19> Physical Exam - Physical Exam Physical Exam Limitations: Other (poor historian) Vital Signs Reviewed: Yes Vital Signs Temp Pulse Resp BP Pulse Ox 12/20/17 08:09 97.2 F L 88 18 114/78 98 Temperature: Afebrile Blood Pressure: Normal Pulse: Regular Respiratory Rate: Normal Appearance: Positive for: Well-Appearing, Non-Toxic Pain Distress: Mild Mental Status: Positive for: Alert and Oriented X 3 - Systems Exam Head: Present: Normocephalic, Laceration (10 cm linear laceration to the posterior portion of head overlying the parietal and extending into the occiptal region of the head. There are no surround depressions, steps offs or signs of overt fracture when palpating surrounding area.) Pupils: Present: Pinpoint Extroacular Muscles: Present: EOMI Conjunctiva: Present: Icteric Mouth: Present: Dry Neck: Present: Normal Range of Motion. No: Meningeal Signs, MIDLINE TENDERNESS, Paraspinal Tenderness Respiratory/Chest: Present: Clear to Auscultation, Good Air Exchange. No: Respiratory Distress, Accessory Muscle Use, Wheezes, Rales, Rhonchi Cardiovascular: Present: Normal S1, S2, Irregular Rhythm. No: Rub, Gallop Abdomen: Present: Normal Bowel Sounds. No: Tenderness, Distention, Peritoneal Signs, Rebound, Guarding Back: Present: Normal Inspection. No: Midline Tenderness, Paraspinal Tenderness Upper Extremity: Present: Normal Inspection, Normal ROM, NORMAL PULSES, Capillary Refill < 2s. No: Cyanosis, Edema Lower Extremity: Present: Normal Inspection, NORMAL PULSES, Tenderness (with palpation of the L knee, no erythema, swelling or effusion present, passive and active ROM intact, neurovascularly intact.), Neurovascularly Intact, Capillary Refill < 2 s. No: Edema, CALF TENDERNESS, Kemi's Sign, Temperature Abn ormalties Neurological: Present: GCS=15, Speech Normal, Motor Func Grossly Intact, Normal Sensory Function Skin: Present: Warm, Dry, Normal Color. No: Rashes Psychiatric: Present: Alert, Oriented x 3 <Tahira Alex - Last Filed: 12/20/17 12:19> Vital Signs Temp Pulse Resp BP Pulse Ox 12/20/17 08:09 97.2 F L 88 18 114/78 98 - Systems Exam Head: Present: Laceration Ears: Present: NORMAL TM, Normal Canal. No: Erythema, TM Bulging Nose (External): Present: Atraumatic Nose (Internal): Present: Normal Inspection. No: Septal Hematoma Back: No: CVA Tenderness Neurological: Present: CN II-XII Intact <Noam Frankel - Last Filed: 12/20/17 12:50> Medical Decision Making ED Course and Treatment: 12/20/17 08:36 Pt is a 67 yo M with pmhx detailed above who presents s/p fall this AM - CBC - CMP - EKG - Trops - CT head and neck w/o contrast - CXR - Pelvis XR - L knee XR - RAD Interpretation Radiology Orders: 12/20/17 08:17 CERVICAL SPINE W/O CONTRAST [CT] Stat HEAD W/O CONTRAST [CT] Stat CHEST TWO VIEWS (PA/LAT) [RAD] Stat HIP MIN 2V W/ PELVIS KARINA [RAD] Stat - EKG Interpretation EKG Interpretation (Text): 12/20/17 08:54 Afib @ 79 bpm Possible anterior infarct, age undetermined Interpreted by ED Physician: Yes Type: 12 lead EKG <IsaiTahira - Last Filed: 12/20/17 12:19> ED Course and Treatment: 12/20/17 09:00 67 year old male presents to the Emergency department complaining of a headache s/p fall. Unk tetanus UTD. Will likely seek CTH given poor historian and pt has a hx of afib w/ previous GI bleed. No dark or bloody stool. Pinpoint pupils on exam- ?percocet usage /w ETOH possible. Will seek ETOH. Pending baseline labs. No CP or SOB. Abd non-ttp. Pelvis stable w/ out pain. No hip pain w/ ranging. L knee pain. No erythema. N/V intact distally w/ strong pulse. In agreement with resident note which contains more details about the patient. Patient seen and evaluated with resident. Came up with plan and treatment together. 12/20/17 09:37 Etoh elevated. 133- likely contributing to fall w/ co-ingestion of percocet. Pending CT PLT: 33. ?worsening cirrhosis, will add on ammonia. ?ITP No signs of asterixis on my exam. Will likely require obs. 12/20/17 10:31 CT and Xray findings reviewed. Lucency in L knee. No cellulitis: Mass noted in lung in CT spine. Discussed case with Dr. Khan and made aware CT findings for possible neoplasm and lab results for thrombocytopenia. Accepts patient under his service. 12/20/17 12:46 Lac cleaned w/ resident, no FB's noted. Lac closed w/ 16 rizwan, good hemostasis. - Lab Interpretations Lab Results: 12/20/17 08:40 12/20/17 08:40 Lab Results 12/20/17 08:40: Alcohol, Quantitative 133 H 12/20/17 08:40: Digoxin 0.7 L 12/20/17 08:40: Sodium 141, Potassium 3.1 L, Chloride 106, Carbon Dioxide 25, Anion Gap 13, BUN 13, Creatinine 0.9, Est GFR ( Amer) > 60, Est GFR (Non- Af Amer) > 60, Random Glucose 101, Calcium 8.0 L, Total Bilirubin 1.8 H, AST 96 H, ALT 33, Alkaline Phosphatase 122, Troponin I 0.02 D, Total Protein 8.5 H, Albumin 3.1, Globulin 5.3, Albumin/Globulin Ratio 0.6 L 12/20/17 08:40: PT 15.9 H, INR 1.37, APTT 35.0 12/20/17 08:40: WBC 2.1 L* D, RBC 3.59, Hgb 9.7 L, Hct 30.6 L, MCV 85.2, MCH 27.0, MCHC 31.7, RDW 20.7 H, Plt Count 36 L*, MPV 11.5 H, Gran % 67.1, Lymph % (Auto) 12.1 L, Iroquois % (Auto) 12.1 H, Eos % (Auto) 6.3 H, Baso % (Auto) 2.4, Gran # 1.38 L, Lymph # (Auto) 0.3 L, [place]quois # (Auto) 0.3, Eos # (Auto) 0.1, Baso # (Auto) 0.05 - RAD Interpretation Radiology Orders: 12/20/17 08:17 CERVICAL SPINE W/O CONTRAST [CT] Stat HEAD W/O CONTRAST [CT] Stat CHEST TWO VIEWS (PA/LAT) [RAD] Stat HIP MIN 2V W/ PELVIS KARINA [RAD] Stat 12/20/17 09:15 KNEE LEFT 2 VIEWS (AP & LAT) [RAD] Stat <Noam Frankel - Last Filed: 12/20/17 12:50> Procedure: Wound Repair - Time Performed Time Performed: 12:00 - Consent Obtained Consent obtained: Verbal - Performed by Performed by: Mid-level Provider - Indications Indication(s):: Laceration - Location Location:: Scalp (Was located on the L lateral aspect of the posterior skull, starting in the parietal region of the scalp and extending posterio-laterally to the occiptal region. Laceration was estimated to be about 10 cm.) Shape:: Curvilinear Dimensions Length cm: 10 Dimensions width cm: 1/4 Depth:: Subcutaneous fascia - Anesthetic Technique Anesthetic Technique: Local Local/Regional Anesthetic:: Lidocaine 2% - Debris Debris:: None - Irrigated Irrigated with ml of normal saline: 500 - Complexity Complexity:: Simple (one layer) (staple was used and skin was approximated with the help of the attending physician who was overseeing the procedure. 16 rizwan were placed in all, all rizwan were placed over the middle of laceration.) - Patient tolerated procedure Patient Tolerated Procedure:: Well <Tahira Alex - Last Filed: 12/20/17 12:19> - Anesthetic Technique Local/Regional Anesthetic:: Lidocaine 2% (w/ epi) - Wound repair method Sutures:: # (16 rizwan) <Noam Frankel - Last Filed: 12/20/17 12:50> - PA / LABOR ECONOMIST / Resident Statement MD/ has reviewed & agrees with the documentation as recorded. MD/DO has examined the patient and agrees with the treatment plan. - Scribe Statement The provider has reviewed the documentation as recorded by the Scribe Srikanth Epperson. All medical record entries made by the Scribe were at my direction and personally dictated by me. I have reviewed the chart and agree that the record accurately reflects my personal performance of the history, physical exam, medical decision making, and the department course for this patient. I have also personally directed, reviewed, and agree with the discharge instructions and disposition. <Noam Frankel - Last Filed: 12/20/17 12:50> Disposition/Present on Arrival - Present on Arrival Any Indicators Present on Arrival: No History of DVT/PE: No History of Uncontrolled Diabetes: No Urinary Catheter: No History of Decub. Ulcer: No History Surgical Site Infection Following: None - Disposition Have Diagnosis and Disposition been Completed?: No <Tahira Alex - Last Filed: 12/20/17 12:19> - Disposition Disposition Time: 10:48 <Noam Frankel - Last Filed: 12/20/17 12:50> - Disposition Diagnosis: Lung mass, Fall, Laceration of head Disposition: HOSPITALIZED Patient Problems: Current Active Problems Problem Status Onset Fall Acute Laceration of head Acute Lung mass Acute Condition: GOOD
[2017-12-20 09:05] LABS: BASO # 0.05 K/mm3 (0.0-2.0); BASO % 2.4 % (0.0-3.0); EOS # 0.1 (0.0-0.7); EOS % 6.3 % (1.5-5.0); GRAN # 1.38 (1.4-6.5); GRAN % 67.1 % (50.0-68.0); HEMOGLOBIN 9.7 g/dL (14.0-18.0); LYMPH # 0.3 (1.2-3.4); LYMPH % 12.1 % (22.0-35.0); MEAN CELL VOLUME 85.2 fl (80.0-105.0); MEAN CORPUSCULAR HGB CONC 31.7 g/dl (31.0-37.0); MEAN PLATELET VOLUME 11.5 fl (7.0-11.0); MONO # 0.3 (0.1-0.6); MONO % 12.1 % (1.0-6.0); RBC 3.59 10^6/uL (3.5-6.1); RED CELL DISTRIBUTION WIDTH 20.7 % (11.5-14.5)
[2017-12-20 09:13] LABS: ALB/GLOB RATIO 0.6 (1.1-1.8); ALBUMIN 3.1 g/dL (3.0-4.8); ALT/SGPT 33 U/L (7-56); AST/SGOT 96 U/L (17-59); BLOOD UREA NITROGEN 13 mg/dL (7-21); GFR NON-AFRICAN AMERICAN > 60
[2017-12-20 09:15] LABS: INR 1.37; PROTHROMBIN TIME 15.9 SECONDS (9.4-12.5)
[2017-12-20 09:24] LABS: TROPONIN I 0.02 ng/mL
[2017-12-20 09:28] LABS: PLATELET COUNT 36 10^3/uL (120.0-450.0); WHITE BLOOD COUNT 2.1 10^3/ul (4.5-11.0)
--- NOTE | 2017-12-20 09:32 | CT ---
Date of service: 12/20/2017 PROCEDURE: CT HEAD WITHOUT CONTRAST. HISTORY: s/p fall COMPARISON: 08/28/2016 TECHNIQUE: Axial computed tomography images were obtained through the head/brain without intravenous contrast. Radiation dose: Total exam DLP = 791.63 mGy-cm. This CT exam was performed using one or more of the following dose reduction techniques: Automated exposure control, adjustment of the mA and/or kV according to patient size, and/or use of iterative reconstruction technique. FINDINGS: HEMORRHAGE: No intracranial hemorrhage. BRAIN: No mass effect or edema. Very small focal area of encephalomalacia in the anterior medial right frontal lobe on series 4, image 23, unchanged from prior CT. Second area of focal encephalomalacia in the anterior right frontal lobe on series 4, image 16. Nonspecific. Again, unchanged from prior. No evidence of acute infarct. Mild diffuse atrophy. Consistent with patient age. VENTRICLES: Unremarkable. No hydrocephalus. CALVARIUM: Unremarkable. PARANASAL SINUSES: Chronic sphenoid sinusitis. MASTOID AIR CELLS: Unremarkable as visualized. No inflammatory changes. OTHER FINDINGS: None. IMPRESSION: Two small areas of encephalomalacia in the right frontal lobe unchanged from prior CT examination. Possible small old infarcts though they are nonspecific. No intracranial hemorrhage. Chronic sphenoid sinusitis. Mild age-appropriate diffuse atrophy.
--- NOTE | 2017-12-20 09:39 | CT ---
Date of service: 12/20/2017 PROCEDURE: CT Cervical Spine without contrast HISTORY: s/p fall COMPARISON: None available. TECHNIQUE: Axial computed tomography images were obtained of the cervical spine without the use of intravenous contrast. Coronal and sagittal reformatted images were created and reviewed. Radiation dose: Total exam DLP = 591.97 mGy-cm. This CT exam was performed using one or more of the following dose reduction techniques: Automated exposure control, adjustment of the mA and/or kV according to patient size, and/or use of iterative reconstruction technique. FINDINGS: VERTEBRAE: The vertebral bodies are maintained in height. There is mild reversal of the normal lordotic curvature indicating possible muscular spasm. There is grade 1 anterolisthesis at C3-4 likely degenerative in origin. The atlantoaxial articulation and odontoid process are intact. DISCS/SPINAL CANAL/NEURAL FORAMINA: There is narrowing of the C4-5 and C5-6 and C6-7 intervertebral disc spaces consistent with degenerative disc disease. The remaining disc spaces are maintained in height. There is mild central spinal stenosis noted at the C4-5 and C5-6 intervertebral disc space levels. PARASPINAL SOFT TISSUES: No prevertebral soft tissue swelling. There is an irregular spiculated pleural-based mass in the medial right lung apex measuring roughly 1.5 x 2.1 cm. Further evaluation with contrast-enhanced computed tomography of the chest is advised. This is suspicious for possible neoplasm. OTHER FINDINGS: None. IMPRESSION: No fracture. Degenerative disc disease at multiple levels with grade 1 anterolisthesis at C3-4. Possible muscular spasm. Mild multilevel central spinal stenosis. 2.1 cm spiculated pleural-based mass in the medial right lung apex suspicious for neoplasm. Further evaluation with computed tomography is advised.
--- NOTE | 2017-12-20 09:59 | RAD ---
Date of service: 12/20/2017 HISTORY: s/p fall COMPARISON: No prior. TECHNIQUE: Chest PA and lateral FINDINGS: LUNGS: No active pulmonary disease. PLEURA: No significant pleural effusion identified. No pneumothorax apparent. CARDIOVASCULAR: Normal. OSSEOUS STRUCTURES: No significant abnormalities. VISUALIZED UPPER ABDOMEN: Normal. OTHER FINDINGS: None. IMPRESSION: No active disease.
--- NOTE | 2017-12-20 10:06 | RAD ---
PROCEDURE: Radiographs of the pelvis and bilateral hips HISTORY: s/p fall COMPARISON: None. FINDINGS: BONES: Pelvis: Unremarkable. Right hip:Unremarkable. Left hip:Unremarkable. JOINTS: Right hip: Unremarkable. Left hip: Unremarkable. Sacroiliac Joints: Unremarkable. Pubic symphysis: Unremarkable. SOFT TISSUES: Normal. OTHER FINDINGS: None. IMPRESSION: Unremarkable radiographs of the hips and pelvis.
--- NOTE | 2017-12-20 10:07 | RAD ---
Date of service: 12/20/2017 PROCEDURE: Left Knee Radiographs. HISTORY: Pain. COMPARISON: None. FINDINGS: BONES: Status post left total knee replacement. No fracture. There is some lucency seen about the medial portion of the femoral component of the prosthesis. No other periprosthetic lucency is identified. Significance uncertain. No lytic or blastic osseous lesion. JOINTS: As above JOINT EFFUSION: None. OTHER FINDINGS: None. IMPRESSION: There is lucency about the medial portion of the femoral component of the knee prosthesis. No acute fracture..
[2017-12-20] MEDS ORDERED: Lidocaine 1%/Epinephrine 1:100000 30 ml vial IJ STA (10:58)
[2017-12-20] MEDS: Pantoprazole 40 mg EC Tab PO SCH (14:05)
[2017-12-20] MEDS: Digoxin 250 mcg (0.25 mg) Tab PO SCH (14:05)
[2017-12-20] MEDS ORDERED: Pneumococcal 23-Valent Vaccine IM ONE (14:28)
[2017-12-20] MEDS ORDERED: Influenza Vaccine 60 mcg/0.5 mL SYR (4YR UP) IM ONE (14:28)
--- NOTE | 2017-12-20 14:44 | CARD ---
APPROVED REPORT Date of service: 12/20/2017 EKG Measurement Heart [id number] <Conclusion> Atrial fibrillation Possible Anterior infarct, age undetermined Abnormal ECG
[2017-12-20] MEDS ORDERED: Potassium Chloride 20 mEq ER Tab PO SCH ×2 (16:00→22:00)
[2017-12-20] MEDS ORDERED: Potassium Chloride 20 mEq ER Tab PO ONE ×2 (16:00→22:00)
[2017-12-20] MEDS: Sodium Chloride 0.45% 1,000 ML IV SCH (21:22)
--- NOTE | 2017-12-20 22:07 | PCM.RRT ---
<Levi Rothman - Last Filed: 12/21/17 03:09> LABOR AND DELIVERY NURSE Nurse Assessment - Situation Date: 12/20/17 Time LABOR AND DELIVERY NURSE was called: 21:58 LABOR AND DELIVERY NURSE Location:: [facility] LABOR AND DELIVERY NURSE Reason for Call: Change in Mental Status - Diagnostic Test Ordered EKG: Yes Chest X-Ray: Yes - Stat Labs Ordered LABOR AND DELIVERY NURSE Stat Labs Ordered: CBC, BMP, PT/PTT, TROPONIN, LACTIC ACID, ABG CPR started during LABOR AND DELIVERY NURSE?: No - Vital Signs Vital Sign: BP 127/90, 99% on 2L NC, tachycardia at 114 bpm, - Constitutional Appears: Unkempt, Agitated - Head Head Exam: ATRAUMATIC, NORMOCEPHALIC - Eyes Eye Exam: EOMI, Normal appearance - Respiratory Exam Respiratory Exam: Decreased Breath Sounds, Clear to Ausculation Bilateral, NORMAL BREATHING PATTERN. absent: Rales - Cardiovascular Exam Cardiovascular Exam: Irregular Rhythm, +S1, +S2 - Neurological Exam Neurological Exam: Awake. absent: Alert, Oriented x3 Plan - Assessment of Findings&Treatment Plan Levi Rothman PGY-1 LABOR AND DELIVERY NURSE Note for Hospitalist Service A rapid response was called for 67 yo M with pmhx of seizures, GERD, Afib, GI bleed, and cirrhosis on Digoxin. Patient admitted for recent fall. Patient likely had a seizure with bowel incontinence and eye twitching/rolling p er nursing. Call was placed to PMD Dr. Khan to make him aware of current patient status. Ordered stat orders of CBC, CMP, Mg, Phos, Prolactin, ABG shock panel, EKG, Trop, Head CT without contrast, CXR, PT, PTT, Keppra 750 mg IV. Put in seizure, fall and aspiration precautions. Patient changed to NPO with neuro checks q2h. Ordered Keppra maintenance of 750 mg IV BID to begin tomorrow. Dr. Perry (Neurology) was consulted and recommendations appreciated in AM. Patient status improved. Patient hemodynamically stable with vital signs BP 127/90 with slight tachycarda at 114 bpm 99% on 2 L NC. Patient transferred to telemetry for more acute monitoring. We will continue to monitor patient closely overnight. <Amalia Caldwell - Last Filed: 12/22/17 06:45> LABOR AND DELIVERY NURSE Nurse Assessment - Vital Signs Vital Sign: Rapid Response Vital Sign Blood Pressure 148/74 Pulse Rate 122 Respiratory Rate 22 Temperature 98.4 F Oxygen Saturation 93 Attending/Attestation - Attestation I have personally seen and examined this patient.: Yes I have fully participated in the care of the patient.: Yes I have reviewed all pertinent clinical information, including history, physical exam and plan: Yes
[2017-12-20] MEDS ORDERED: SODIUM CHLORIDE 0.9% IV STA (22:11)
[2017-12-20] MEDS ORDERED: LEVETIRACETAM IV STA (22:11)
[2017-12-20 22:27] LABS: ARTERIAL BLOOD GAS O2 SAT 100.6 % (95-98); ARTERIAL BLOOD GAS PCO2 31 mm/Hg (35-45); ARTERIAL BLOOD GAS PH 7.32 (7.35-7.45)
[2017-12-20 22:45] LABS: BASO # 0.02 K/mm3 (0.0-2.0); BASO % 0.7 % (0.0-3.0); EOS % 0.4 % (1.5-5.0); GRAN # 2.32 (1.4-6.5); GRAN % 83.8 % (50.0-68.0); LYMPH # 0.2 (1.2-3.4); LYMPH % 7.2 % (22.0-35.0); MEAN CELL VOLUME 86.5 fl (80.0-105.0); MEAN CORPUSCULAR HGB CONC 31.3 g/dl (31.0-37.0); MONO # 0.2 (0.1-0.6); MONO % 7.9 % (1.0-6.0); RED CELL DISTRIBUTION WIDTH 20.3 % (11.5-14.5)
[2017-12-20 22:52] LABS: INR 1.42; PROTHROMBIN TIME 16.3 SECONDS (9.4-12.5)
[2017-12-20 22:55] LABS: PLATELET COUNT 38 10^3/uL (120.0-450.0); WHITE BLOOD COUNT 2.8 10^3/ul (4.5-11.0)
[2017-12-20 23:06] LABS: ALB/GLOB RATIO 0.6 (1.1-1.8); ALBUMIN 3.3 g/dL (3.0-4.8); ALT/SGPT 30 U/L (7-56); AST/SGOT 108 U/L (17-59); BLOOD UREA NITROGEN 15 mg/dL (7-21); CALCIUM 8.1 mg/dL (8.4-10.5); GFR NON-AFRICAN AMERICAN > 60
[2017-12-20 23:11] LABS: TROPONIN I 0.01 ng/mL
[2017-12-21] MEDS: Magnesium Sulfate 1 gm in D5W 1 GM/100 ML BAG IVPB ONE ×2 (00:15→05:50)
[2017-12-21 02:50] LABS: VENOUS BLOOD GAS BASE EXCESS 3.6 mmol/L (0.0-2.0); VENOUS BLOOD GAS PO2 59 mm/Hg (30-55)
[2017-12-21] MEDS: Sodium Chloride 0.45% 1,000 ML IV SCH ×2 (05:44→21:23)
[2017-12-21] MEDS ORDERED: Magnesium Sulfate 1 gm in D5W 1 GM/100 ML BAG IVPB ONE (05:45)
[2017-12-21 07:13] LABS: BASO # 0.01 K/mm3 (0.0-2.0); BASO % 0.4 % (0.0-3.0); EOS % 0.4 % (1.5-5.0); GRAN # 1.97 (1.4-6.5); GRAN % 78.5 % (50.0-68.0); HEMOGLOBIN 9.3 g/dL (14.0-18.0); LYMPH # 0.2 (1.2-3.4); LYMPH % 6.4 % (22.0-35.0); MEAN CELL VOLUME 85.9 fl (80.0-105.0); MEAN CORPUSCULAR HEMOGLOBIN 26.8 pg (25.0-35.0); MEAN CORPUSCULAR HGB CONC 31.2 g/dl (31.0-37.0); MONO # 0.4 (0.1-0.6); MONO % 14.3 % (1.0-6.0); RBC 3.47 10^6/uL (3.5-6.1); RED CELL DISTRIBUTION WIDTH 20.4 % (11.5-14.5)
[2017-12-21] MEDS ORDERED: Iohexol 350 MG/100 ML VIAL ONE (07:26)
[2017-12-21 07:38] LABS: ALB/GLOB RATIO 0.6 (1.1-1.8); ALT/SGPT 32 U/L (7-56); AST/SGOT 92 U/L (17-59); BLOOD UREA NITROGEN 16 mg/dL (7-21); CALCIUM 7.9 mg/dL (8.4-10.5); GFR NON-AFRICAN AMERICAN > 60; PLATELET COUNT 30 10^3/uL (120.0-450.0); WHITE BLOOD COUNT 2.5 10^3/ul (4.5-11.0)
--- NOTE | 2017-12-21 08:04 | CT ---
Date of service: 12/20/2017 PROCEDURE: CT HEAD WITHOUT CONTRAST. HISTORY: ? seizure COMPARISON: 12/20/2017 TECHNIQUE: Axial computed tomography images were obtained through the head/brain without intravenous contrast. Radiation dose: Total exam DLP = 938 mGy-cm. This CT exam was performed using one or more of the following dose reduction techniques: Automated exposure control, adjustment of the mA and/or kV according to patient size, and/or use of iterative reconstruction technique. FINDINGS: HEMORRHAGE: No intracranial hemorrhage. BRAIN: No mass effect or edema. Chronic microvascular changes and encephalomalacia can be seen in the frontal white matter bilaterally. There is moderate atrophy VENTRICLES: Unremarkable. No hydrocephalus. CALVARIUM: Unremarkable. PARANASAL SINUSES: Unremarkable as visualized. No significant inflammatory changes. MASTOID AIR CELLS: Unremarkable as visualized. No inflammatory changes. OTHER FINDINGS: The report concurs with the preliminary [facility] report IMPRESSION: No acute intracranial findings
--- NOTE | 2017-12-21 08:35 | RAD ---
Date of service: 12/20/2017 HISTORY: ? seizure COMPARISON: 12/20/2017 at 9:28 a.m. FINDINGS: LUNGS: The lungs are clear. PLEURA: No significant pleural effusion identified, no pneumothorax apparent. CARDIOVASCULAR: Stable. OSSEOUS STRUCTURES: Within normal limits for the patient's age. VISUALIZED UPPER ABDOMEN: Normal. OTHER FINDINGS: None. IMPRESSION: No active pulmonary disease.
--- NOTE | 2017-12-21 09:30 | CON ---
DATE: 12/21/2017 HISTORY OF PRESENT ILLNESS: A 67-year-old male, came in to the hospital on 12/20/2017 for a fall at home and injured his left knee. I was asked to see him. X-rays of his left knee shows a total knee replacement and cemented done a couple of years ago with no complaints of instability. He does have a little pain when I do valgus varus stresses, but otherwise the left total knee is stable and there is no effusion and he has good extension and flexion. I feel as though he has just a contusion of his left knee when he slipped and fell at home. I am going to write for physical therapy. Ambulate with a walker because he may fall again because he is having other issues that he has to see a neurologist for. FINAL DIAGNOSES: Stable left total knee and with a mild contusion from a recent fall just prior to admission. Otherwise, he should do well with strengthening exercise and ambulation with a walker or cane to avoid another fall. Balwinder Santamaria DO
[2017-12-21] MEDS: Digoxin 250 mcg (0.25 mg) Tab PO SCH (10:09)
[2017-12-21] MEDS: Pantoprazole 40 mg EC Tab PO SCH (10:09)
--- NOTE | 2017-12-21 11:08 | CT ---
Date of service: 12/21/2017 PROCEDURE: CT Chest with contrast HISTORY: 2 cm rt apical mass. additional 3mm slices of mass COMPARISON: None available. TECHNIQUE: Contiguous axial images were obtained through the chest with intravenous contrast enhancement. Sagittal and coronal reconstructions were performed. IV contrast: 100 cc of Omni 350 Radiation dose (DLP): 446 mGy-cm. This CT exam was performed using one or more of the following dose reduction techniques: Automated exposure control, adjustment of the mA and/or kV according to patient size, and/or use of iterative reconstruction technique. FINDINGS: LUNGS: There is a 15 x 21 mm nodule in the right lung apex adjacent to the mediastinum. This is suspicious for neoplastic lesion. This could represent apical scarring. Follow-up is recommended. This was seen on the cervical CT from 12/20/2017. There are no earlier studies the through this region. MEDIASTINUM: Unremarkable thoracic aorta. No aneurysm or dissection. Normal sized heart. Main pulmonary artery unremarkable. No vascular congestion. No lymphadenopathy. PLEURA: No pleural fluid. No pneumothorax. BONES: No fracture. No destructive lesion. UPPER ABDOMEN: The liver has an irregular contour consistent with cirrhosis. There is also splenomegaly OTHER FINDINGS: None. IMPRESSION: There is a 15 x 21 mm nodule in the right lung apex adjacent to the mediastinum. This is suspicious for neoplastic lesion. This could represent apical scarring. Follow-up is recommended. This was seen on the cervical CT from 12/20/2017. There are no earlier studies the through this region.
[2017-12-21 12:34] LABS: PROLACTIN 124.4 ng/mL (3.7-17.9)
--- NOTE | 2017-12-21 15:27 | CON ---
DATE: 12/21/2017 NEUROLOGY CONSULTATION CHIEF COMPLAINT: Questionable seizure. 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 The patient is currently on Keppra 750 mg IV b.i.d. CAT scan of the head showed no acute intracranial abnormality. He has an elevated level of 133 and he has thrombocytopenia. He is definitely deconditioned as well and continues to drink daily. PAST MEDICAL HISTORY: As above. SOCIAL HISTORY: Drinks alcohol daily. No illicit drug use or smoking. FAMILY HISTORY: Noncontributory. MEDICATIONS: Reviewed by nurses' reconciliation sheet. REVIEW OF SYSTEMS: Fourteen-point review of systems is negative except as per the HPI. LABORATORY DATA: U-tox positive for alcohol level of 133. Sodium is 138, potassium 3.7, chloride 106, carbon dioxide of 27, BUN of 16, creatinine of 1.1, random glucose of 106. He had elevated ammonia level of 37 as well on 12/20/2017. PHYSICAL EXAMINATION: VITAL SIGNS: Temperature 98.1, pulse rate of 84, blood pressure 133/84, respiratory rate of 18, and oxygen saturation 98% by room air. GENERAL: The patient is sitting up in bed, in no acute distress. HEENT: Atraumatic, normocephalic. PERRLA. Extraocular muscles intact. NECK: Supple. No JVD, no adenopathy noted. LUNGS: Clear to auscultation. No adventitious sounds. HEART: S1 and S2. Normal rate and rhythm. No murmurs, rubs, or gallops. ABDOMEN: Soft, nontender, and nondistended. Bowel sounds are present. EXTREMITIES: No clubbing. No cyanosis. Peripheral pulses 2+ felt bilaterally. NEUROLOGIC: The patient is alert and oriented to person, place, month, and year. Recall after 5 minutes is 0/3. Poor attention span, slow thought process. Flat affect. Cranial nerves II through XII are intact. Speech is fluent without any errors. Motor: Slightly increased tone throughout. Moves all extremities equally. No pronator drift seen. Sensory: Decreased light touch and pinprick up to the calves bilaterally. Decreased vibration of the toes. DTRs are 2+ throughout and 1 at both knees and ankles. Coordination: [id number] intact. No dysmetria noted. No asterixis noted. Gait is deferred for now. ASSESSMENT AND PLAN: This is a 67-year-old man with history of alcohol abuse, atrial fibrillation, gastrointestinal bleed, cirrhosis, gastroesophageal reflux disease, thrombocytopenia, history of knee replacement, history of alcohol-induced seizures who came in for recent fall, had a breakthrough seizure while in the hospital, had an elevated ammonia level of 37. In addition, he had elevated alcohol level of 133. Likely, seizures are breakthrough due to alcohol abuse which lowers the seizure threshold and hyperammonia from chronic liver cirrhosis. At this time, we would recommend: 1. Continue with Keppra 750 mg p.o. b.i.d. for breakthrough seizures. 2. Thiamine and CIWA protocol. 3. Alcohol counseling given and needs to be checked into an alcohol rehab or psychiatric followup. Request alcohol cessation. 4. Thiamine 100 mg p.o. daily. 5. Seizure precautions. 6. Monitor electrolytes and correct accordingly. 7. Continue current present medical management. Thank you for this consultation. Lonnie Perry MD
--- NOTE | 2017-12-21 22:25 | PN ---
DATE: 12/21/2017 SUBJECTIVE: Patient was seen this Wednesday in room 272, bed 1 with his at the bedside. He is awake, alert, sitting up in chair. Went for CT scan of the chest earlier today. PHYSICAL EXAMINATION: Exam is essentially unchanged and unremarkable. He is awake, alert, but no further seizure activity or loss of consciousness after the rapid response called last night. ASSESSMENT AND PLAN: I spoke with patient at length regarding his alcohol consumption. He does not quite seem to understand the importance of stopping all alcohol. Was hoping to go home, have a few beers and then contact his friends at . I spoke to the patient and his , reviewing all of his diagnoses from the alcoholic suppression of the bone marrow to the lung lesion seen on CT scan. I also reviewed the case with Dr. Jairo Velez. Patient is schedule for biopsy tomorrow of the lung lesion. Meño Khan MD
--- NOTE | 2017-12-22 01:43 | HP ---
DATE OF EXAM: 12/21/2017 HISTORY OF PRESENT ILLNESS: The patient is a 67-year-old male who presented to the emergency room after a fall at home in the bathroom and suffering a laceration to the occipital area of his scalp. Laceration is approximately 4 inches long. Apparently, the patient had been drinking earlier that day in preparation of his upcoming wedding anniversary. Later on that evening, he developed hiccups which happens on occasion, after which he takes p.r.n. Thorazine. He awoke from sleep to go to the bathroom and suffered a fall. He was assisted up again by his and then fell the second time. He was brought to the emergency room, he is evaluated and admitted. When seen in the emergency room, the patient is awake, alert and oriented, and his is at bedside. PAST MEDICAL HISTORY: He is known to have a past medical history positive for hernia repair in 1972; status post left knee replacement in 2014. He is known to be positive for hepatitis C, chronically elevated liver enzymes and gallbladder calculi. He was hospitalized in 2010 with hematemesis, underwent endoscopy with Dr. Gavin and was found to have esophageal varices and gastritis. In 2010, he tested positive on a Mantoux test and was prescribed a course of Isoniazid. He was hospitalized again in 2011 with COPD exacerbation and hematemesis. In 2011, he developed atrial fibrillation and is being followed by Dr. Corea. He is also being followed by Dr. Rodrigues for thrombocytopenia. As mentioned above, his left knee replacement was done in [address] Hart. In 2015, while on vacation in [place], he again had a bout of hematemesis. Ultrasound ordered by Dr. Gavin, his hobber in 2016, showed gallbladder calculi and hepatosplenomegaly. SOCIAL HISTORY: The patient smokes 1 pack of cigarettes a day and drinks approximately 1 case of beer and 1 pint of hard liquor per week. ALLERGIES: HE HAS NO KNOWN MEDICAL ALLERGIES. MEDICATIONS: At the time of admission include nadolol 40 mg, Protonix 40 mg, digoxin 0.25 mg and Percocet 10 mg four times a day p.r.n. pain. His Thorazine is 50 mg which he takes twice a day if needed, but has rarely been required in the past. REVIEW OF SYSTEMS: Otherwise unremarkable. PHYSICAL EXAMINATION: GENERAL: He is awake, alert and oriented. His is at bedside. VITAL SIGNS: His blood pressure is 114/78, heart rate is 88 beats per minute, and he is afebrile. HEENT: His laceration over the occipital area of his scalp is currently being sutured by the ER physician. NECK: Supple. There was no lymphadenopathy. LUNGS: Clear but distant anteriorly. HEART: His heart sounds are regular. No murmur is appreciated. ABDOMEN: Soft and nontender. EXTREMITIES: Free of cyanosis, clubbing, or edema. NEUROLOGIC: The patient is awake, alert and oriented. She is lucid. LABORATORY STUDIES: Reveal white blood cell count to be depressed at 2.1, hemoglobin and hematocrit are 9.7 and 30.0, platelet count is 36. Sodium is 141, potassium is depressed at 3.1, blood urea nitrogen 13, creatinine 0.9, nonfasting glucose is 101. Total bilirubin is elevated at 1.8, AST is elevated at 96, ALT is 33. X-ray of the knee shows a lucency in the medial portion of the femoral component of his prosthesis. It is unclear the implication of this finding. X-rays of the hip and pelvis are negative for fracture. CAT scan of the head shows no acute changes. A CAT scan of the cervical spine was performed, which shows no fracture but it did reveal a 2.1 cm right apical spiculated mass. EKG showed atrial fibrillation with a possible old anterior infarct. So the patient is to be admitted. His electrolytes are to be normalized and reevaluated in the morning. Balwinder Khan MD
[2017-12-22] MEDS: Digoxin 250 mcg (0.25 mg) Tab PO SCH (11:27)
[2017-12-22] MEDS: Pantoprazole 40 mg EC Tab PO SCH (11:28)
[2017-12-22 14:35] LABS: PLATELET COUNT 49 10^3/uL (120.0-450.0)
[2017-12-22 14:44] LABS: INR 1.4; PARTIAL THROMBOPLASTIN TIME 33.9 Seconds (25.1-36.5); PROTHROMBIN TIME 16.1 SECONDS (9.4-12.5)
[2017-12-22] MEDS ORDERED: Midazolam 2 MG/2 ML VIAL ONE (17:24)
[2017-12-22] MEDS ORDERED: Lidocaine 1% Inj (20ml) ONE (17:25)
[2017-12-22] MEDS ORDERED: Oxycodone/Acetaminophen 5/325 mg Tab PO PRN (18:46)
[2017-12-22] MEDS ORDERED: Sodium Chloride 0.45% 1,000 ML IV SCH (19:00)
[2017-12-22] MEDS ORDERED: Midazolam 2 MG/2 ML VIAL IVP ONE (19:16)
[2017-12-22 23:19] VITALS: O2SAT 99
--- NOTE | 2017-12-23 07:32 | PN ---
DATE: 12/22/2017 DAILY PROGRESS NOTE SUBJECTIVE: The patient is a 67-year-old male, who presented to the emergency room after falling at home suffering a laceration to the occipital area of his scalp. The laceration was approximately 4 inches long. The patient had been drinking earlier that day. He is also taking Thorazine for hiccups. He is known to have a past medical history positive for hernia repair in 1972, status post left knee replacement in 2014. He is known to be positive for hepatitis C, chronically elevated liver enzymes, gallbladder calculi, esophageal varices and gastritis. He also had a positive Mantoux test in 2010 and was treated with isoniazid at that time. He has a history of COPD secondary to cigarette smoking and has atrial fibrillation, which is being followed by Dr. Corea, his mail handler assistant. He sees Dr. Rodrigues for thrombocytopenia. Dr. Gavin is his pump operator byproducts. The patient was admitted after the above-mentioned fall. He had electrolyte imbalances, he was thrombocytopenic. CAT scan of the neck showed no fracture; however, it did show a spiculated mass in the right apex of his lung, therefore he was evaluated by Dr. Jairo Velez and will be going for biopsy later today. When seen today, the patient is in bed. He is awake, alert and oriented. His lungs are clear anteriorly. Heart is regular. Abdomen is soft and nontender. The patient complains of nervousness and anxiety prior to the biopsy. I will make sure his benzodiazepine is ordered to assist him through the procedure. Laboratory studies this morning show the white blood cell count to be 2.5, hemoglobin and hematocrit are 9.3 and 29.8 respectively, platelet count is 30. Sodium is 138, potassium of 3.7, blood urea nitrogen 16, creatinine is 1.1. He was afebrile. His blood pressure was 137/78 and heart rate 67 beats per minute. The patient will be reevaluated in the morning. We will await the results of the biopsy. Balwinder Khan MD
--- NOTE | 2017-12-23 09:39 | RAD ---
Date of service: 12/23/2017 HISTORY: rt apical lung bx--CT COMPARISON: 12/20/2017 FINDINGS: LUNGS: No active pulmonary disease. PLEURA: No significant pleural effusion identified, no pneumothorax apparent. CARDIOVASCULAR: No atherosclerotic calcification present Mild cardiomegaly OSSEOUS STRUCTURES: No significant abnormalities. VISUALIZED UPPER ABDOMEN: Normal. OTHER FINDINGS: None. IMPRESSION: No active disease.
[2017-12-23 09:54] LABS: T3 0.88 ng/mL (0.97-1.69)
[2017-12-23] MEDS: Pantoprazole 40 mg EC Tab PO SCH (09:55)
[2017-12-23] MEDS: Digoxin 250 mcg (0.25 mg) Tab PO SCH (09:55)
[2017-12-23 09:56] VITALS: PULSE 88
[2017-12-23 13:57] VITALS: BP 131/90; RESP 18; TEMP 98.6
[2017-12-23 14:20] VITALS: PULSE 89
--- NOTE | 2017-12-24 10:39 | PN ---
DATE: 12/23/2017 SUBJECTIVE: This is a 67-year-old man who I have seen in the past for pancytopenia secondary to cirrhosis. Patient is admitted to the hospital and now was found to have a lung mass about 1.72 cm. PHYSICAL EXAMINATION: SKIN: No petechiae. No bruises. HEENT: Anicteric. NODES: Nonpalpable in the axillary, cervical, supraclavicular or inguinal regions. LUNGS: Clear at present. No vertebral tenderness. HEART: S1 and S2. ABDOMEN: Shows no liver, no spleen, no tenderness. EXTREMITIES: No edema. CLOTH GRADER: No focal finding. ASSESSMENT AND PLAN: Patient underwent CAT scan guided biopsy of the lung mass yesterday. There is no final reports back. I gave an appointment to see me on 12/28/2017 at 11:00 o'clock in the office. He has been there before. I have seen him in the past for the pancytopenia. I have told him, we will arrange for him to get a PET scan and also to see what the final reports on the pathology are and based on this we will see if he is a surgical candidate or radiation therapy with chemo. Lex Rodrigues MD
--- NOTE | 2017-12-27 18:49 | DS ---
HISTORY OF PRESENT ILLNESS: This is a 67-year-old man, who came to the emergency room after a fall in the bathroom at home with large laceration to the occipital area of the scalp, approximately 4 inches long. The patient had been drinking. He also takes Thorazine and reportedly takes some OxyContin. Thorazine is prescribed for hiccups. In the emergency room, his blood alcohol was 133, and he was admitted after rizwan were placed in the large occipital scalp laceration. PAST MEDICAL HISTORY: Significant for hernia repair, knee replacement, hepatitis C, hematemesis, esophageal varices, cirrhosis, positive Mantoux for which he received INH, atrial fibrillation, chronic thrombocytopenia followed by Dr. Rodrigues, knee replacement in 2014, and COPD. HABITS: He smokes a pack of cigarettes a day. Drinks a case of beer and a pint of liquor in a week. ADMITTING MEDICATIONS: Include nadolol, Protonix, digoxin, and Percocet. COURSE OF HOSPITAL STAY: The patient was admitted to the medical floor. The importance of abstinence of alcohol was explained to him. The dire consequences of his alcohol consumption over the years were explained in the form of cirrhosis, varices, and marrow suppression with the suppression of his white cells, red cells, and platelets. The patient understood. We were telling him in clear and in no uncertain terms that he must stop alcohol consumption. Later that day, the rapid response was called and the patient had an alcohol withdrawal seizure. He was seen by a neurologist, started on Keppra. Again, the importance of lifestyle changes was explained to the patient. He was hemodynamically stable, had no further seizures, and ready for discharge to home. Keppra 500 mg twice a day, was called to his [facility] pharmacy. He will follow up with us in the office in 1 week. FINAL DISCHARGE DIAGNOSES: 1. Fall at home with laceration to the scalp. 2. Acute alcohol intoxication. 3. Cirrhosis. 4. Esophageal varices. 5. Chronic alcohol use. 6. Chronic hepatitis C. 7. Status post hernia repair in 1972. 8. Status post left knee replacement in 2014. 9. Cholelithiasis. 10. 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 11. Chronic obstructive pulmonary disease. 12. Active tobacco use. 13. Atrial fibrillation. 14. Alcohol with marrow suppression with leukopenia, thrombocytopenia, and macrocytic anemia. 15. New onset alcohol withdrawal seizures. PLAN: The patient will be discharged to home. Follow up in the office in 1 week. Meño Khan MD
== END 2017-12-23 14:45 | disposition home or self-care (01) | DRG 605 ==
LOC: ED 07:51 → ERH 10:31 → 5RSO 12:45 → 2RSO 22:55
PROVIDERS: ADMIT Internal Medicine; ATTEND Internal Medicine
PROC: 0HQ0XZZ Repair Scalp Skin, External Approach (ICD-10-PCS; 2017-12-20)
PROC: 30233R1 Transfusion of Nonautologous Platelets into Peripheral Vein, Percutaneous Approach (ICD-10-PCS; 2017-12-22)
PROC: 30233K1 Transfusion of Nonautologous Frozen Plasma into Peripheral Vein, Percutaneous Approach (ICD-10-PCS; principal; 2017-12-22 15:00)
DX: S01.01XA Laceration without foreign body of scalp, initial encounter (principal); I85.00 Esophageal varices without bleeding; S80.02XA Contusion of left knee, initial encounter; K70.30 Alcoholic cirrhosis of liver without ascites; W01.0XXA Fall on same level from slipping, tripping and stumbling without subsequent striking against object, initial encounter; J44.9 Chronic obstructive pulmonary disease, unspecified; R91.8 Other nonspecific abnormal finding of lung field; I48.91 Unspecified atrial fibrillation; F10.10 Alcohol abuse, uncomplicated; K29.70 Gastritis, unspecified, without bleeding; D69.6 Thrombocytopenia, unspecified; R56.9 Unspecified convulsions; B19.20 Unspecified viral hepatitis C without hepatic coma; R06.6 Hiccough; K80.20 Calculus of gallbladder without cholecystitis without obstruction; K21.9 Gastro-esophageal reflux disease without esophagitis; F17.210 Nicotine dependence, cigarettes, uncomplicated; Y90.6 Blood alcohol level of 120-199 mg/100 ml; Y92.002 Bathroom of unspecified non-institutional (private) residence as the place of occurrence of the external cause; Z53.8 Procedure and treatment not carried out for other reasons; Z96.652 Presence of left artificial knee joint

== ENCOUNTER 2018-01-18 07:54 | Day surgery (SDC) | payer MEDICARE ==
[2018-01-12 16:33] VITALS: BMI 24.4
[2018-01-18 08:25] LABS: BASO # 0.05 K/mm3 (0.0-2.0); BASO % 1.8 % (0.0-3.0); EOS # 0.3 (0.0-0.7); EOS % 10.3 % (1.5-5.0); GRAN # 1.84 (1.4-6.5); GRAN % 65.4 % (50.0-68.0); HEMOGLOBIN 10.9 g/dL (14.0-18.0); LYMPH # 0.4 (1.2-3.4); LYMPH % 12.5 % (22.0-35.0); MEAN CELL VOLUME 84.9 fl (80.0-105.0); MEAN CORPUSCULAR HEMOGLOBIN 27.4 pg (25.0-35.0); MEAN CORPUSCULAR HGB CONC 32.2 g/dl (31.0-37.0); MONO # 0.3 (0.1-0.6); RBC 3.98 10^6/uL (3.5-6.1); RED CELL DISTRIBUTION WIDTH 18.6 % (11.5-14.5); WHITE BLOOD COUNT 2.8 10^3/uL (4.5-11.0)
[2018-01-18 08:36] LABS: INR 1.25; PARTIAL THROMBOPLASTIN TIME 38.6 Seconds (25.1-36.5); PROTHROMBIN TIME 14.4 SECONDS (9.4-12.5)
[2018-01-18 08:39] LABS: BLOOD UREA NITROGEN 9 mg/dL (7-21); CALCIUM 8.7 mg/dL (8.4-10.5); GFR NON-AFRICAN AMERICAN > 60
[2018-01-18] MEDS ORDERED: Midazolam 2 MG/2 ML VIAL ONE (10:01)
[2018-01-18] MEDS ORDERED: Lidocaine 1% Inj (20ml) ONE (10:01)
[2018-01-18 11:02] LABS: PLATELET COUNT 56 10^3/uL (120.0-450.0)
[2018-01-18] MEDS ORDERED: Oxycodone/Acetaminophen 5/325 mg Tab PO PRN (11:02)
[2018-01-18] MEDS ORDERED: Midazolam 2 MG/2 ML VIAL IVP ONE (11:14)
[2018-01-18] MEDS ORDERED: Sodium Chloride 0.45% 1,000 ML IV SCH (11:15)
[2018-01-18 11:50] VITALS: RESP 18; TEMP 98.6
--- NOTE | 2018-01-18 12:48 | RAD ---
Date of service: 01/18/2018 HISTORY: rt apical lung bx COMPARISON: Portable chest 12/23/2017. FINDINGS: LUNGS: No active pulmonary disease. PLEURA: No significant pleural effusion identified, no pneumothorax apparent. CARDIOVASCULAR: No aortic atherosclerotic calcification present. Normal cardiac size. No pulmonary vascular congestion. OSSEOUS STRUCTURES: No significant abnormalities. VISUALIZED UPPER ABDOMEN: Normal. OTHER FINDINGS: None. IMPRESSION: No interval acute cardiopulmonary disease appreciated.
[2018-01-18 13:29] VITALS: BP 139/80; PULSE 86; O2SAT 99
--- NOTE | 2018-01-18 18:36 | CT ---
PROCEDURE: CT-guided right apical lung biopsy. HISTORY: Suspicious 18 mm spiculated right apical lung nodule. Second biopsy. PHYSICIAN(S): Jairo Velez MD. TECHNIQUE: The relative risks and indications of the procedure were explained to the patient and consent obtained. The patient was placed supine on the CT scanner and preliminary images through the lung apices obtained. Conscious sedation and monitoring were provided throughout the procedure by a nurse. There is a spiculated 18 millimeter nodule in the right apex medially.. A anterior oblique approach below the right clavicle was selected and the area prepped and draped in the usual sterile fashion. 1% Xylocaine was used to anesthetize the skin and soft tissues. A 18 gauge guiding needle was advanced into the 18 mm right apical nodule.. Its position was confirmed with CT. Using coaxial technique, multiple core biopsies were obtained. The postprocedure images show no evidence of significant pneumothorax or hemorrhage.. IMPRESSION: 1. CT-guided right apical lung biopsy as described above.
== END 2018-01-18 13:50 | disposition home or self-care (01) ==
LOC: SDS 07:54
PROVIDERS: ATTEND Radiology Vascular & Interventional Radiology
DX: C34.91 Malignant neoplasm of unspecified part of right bronchus or lung (principal); B19.20 Unspecified viral hepatitis C without hepatic coma; Z72.89 Other problems related to lifestyle; G40.909 Epilepsy, unspecified, not intractable, without status epilepticus; Z87.891 Personal history of nicotine dependence
CPT/HCPCS: 32405; 36415; 71045; 77012; 80048; 85025; 85610; 85730; 88305; J2250; J2405; J3010; J7030

== ENCOUNTER 2018-05-24 08:27 | Outpatient (CLI) | payer MEDICARE | END 2018-05-24 08:28 | disposition home or self-care (01) | LOC: LAB 08:27 ==